=== PATIENT | male | born 1955 | race Caucasian/White ===

== ENCOUNTER 2020-07-16 11:46 | Outpatient (REF) | payer OTHER, SELFPAY ==
[2020-07-16 11:49] LABS: Urine Cytology See Pathology rpt
== END 2020-07-16 11:47 | disposition home or self-care (01) ==
LOC: HO.LNP 11:46
PROVIDERS: Visit Provider Nurse Practitioner Family
DX: R31.29 Other microscopic hematuria (principal)
CPT/HCPCS: 87086; 88112

== ENCOUNTER 2020-07-18 13:49 | Outpatient (REF) | payer OTHER, SELFPAY ==
--- NOTE | 2020-07-18 13:53 | US_ITS ---
EXAMINATION: US PELVIS, LIMITED/FOLLOW UP CLINICAL INFORMATION: Left groin pain. COMPARISON: None TECHNIQUE: Limited ultrasound imaging through the left groin was performed. FINDINGS: Imaging through the left groin reveals no evidence of hernia, mass, fluid collections or abnormal lymph nodes. The soft tissues are normal. US/US pelvic limited IMPRESSION: Unremarkable left groin exam.
== END 2020-07-18 13:50 | disposition home or self-care (01) ==
LOC: HO.HMGCX 13:49
PROVIDERS: PCP Nurse Practitioner Family; Visit Provider Nurse Practitioner Family
DX: R10.32 Left lower quadrant pain (principal)
CPT/HCPCS: 76857

== ENCOUNTER 2020-07-31 06:12 | Outpatient (REF) | payer OTHER, SELFPAY ==
[2020-07-31 11:59] LABS: Alanine Aminotransferase 13 U/L (0-40); Albumin Level 4.2 g/dL (3.5-5.0); Alkaline Phosphatase 52 U/L (39-117); Anion Gap 14 (12-20); Aspartate Amino Transferase 13 U/L (5-37); Bilirubin Total 0.7 mg/dL (0.0-1.0); Blood Urea Nitrogen 17 mg/dL (9-16); Calcium 8.4 mg/dL (8.4-10.2); Carbon Dioxide 25 mmol/L (22-29); Chloride 107 mmol/L (96-108); Cholesterol 133 mg/dL; Estimated Glomerular Filt Rate > 60; Glucose Fasting 94 mg/dL (60-99); HDL Cholesterol 55 mg/dL; LDL Cholesterol Calculated 65 mg/dl; Potassium 4.2 mmol/L (3.3-5.1); Sodium 142 mmol/L (135-145); Total Protein 7.3 g/dL (6.5-8.0); Triglycerides 66 mg/dL
[2020-07-31 12:08] LABS: Prostate Specific Antigen Scr 7.01 ng/mL (<0.05-4.0); TSH reflex Free T4 0.61 uIU/mL (0.32-4.0)
== END 2020-07-31 06:13 | disposition home or self-care (01) ==
LOC: HO.HMGCLDS 06:12
PROVIDERS: PCP Nurse Practitioner Family; Visit Provider Nurse Practitioner Family
DX: Z00.00 Encounter for general adult medical examination without abnormal findings (principal); Z12.5 Encounter for screening for malignant neoplasm of prostate
CPT/HCPCS: 36415; 80053; 80061; 84153; 84443

== ENCOUNTER 2020-08-25 13:34 | Outpatient (REF) | payer OTHER, SELFPAY ==
--- NOTE | ~2020-08-25 | XR_ITS ---
EXAMINATION: XR HIP, LEFT CLINICAL INFORMATION: Pain COMPARISON: None TECHNIQUE: Two views of the left hip. FINDINGS: Bone alignment is normal. No fracture or dislocation is seen. There is arthritis at the left hip joint with joint space narrowing and osteophyte formation. Soft tissues are unremarkable. XR/XR hip LT min 2V IMPRESSION: Left hip arthritis.
== END 2020-08-25 13:35 | disposition home or self-care (01) ==
LOC: HO.HMGCX 13:34
PROVIDERS: PCP Nurse Practitioner Family; Visit Provider Nurse Practitioner
DX: M25.552 Pain in left hip (principal)
CPT/HCPCS: 73502

== ENCOUNTER → 2020-09-03 10:56 | Outpatient (BNVA) | payer OTHER, SELFPAY | PROVIDERS: PCP Nurse Practitioner Family; Visit Provider Urology ==

== ENCOUNTER 2020-10-14 07:37 | Day surgery (SDC) | payer OTHER, SELFPAY ==
--- NOTE | 2020-10-09 14:46 | HO.ANESPROP2 ---
Documented by User: Roshni Sofia 10/09/20 14:47 HPI - Anesthesia Eval Consult details Narrative: 65yo M for Colonoscopy PMFSH Active Problems Active Problems: All Active Problems (Updated 09/03/20 @ 11:47 by Reid Capellan MD) Elevated PSA (Acute) BPH w urinary obs/LUTS (Acute) Tubular adenoma of colon (Acute) Left hip pain (Acute) Screening for colon cancer (Acute) Left groin pain (Acute) Screening PSA (prostate specific antigen) (Acute) Microscopic hematuria (Acute) Physical exam (Acute) Past Medical History Medical History Elevated PSA Enlarged prostate Graves disease History of hyperthyroidism Family History Family History Father Colon cancer Mother S/P triple vessel bypass Maternal Grandmother History of heart attack Son No problems noted. Daughter No problems noted. Paternal Grandmother Diabetes mellitus Surgical History Surgical History History of thyroidectomy Hx of colonoscopy Social History Social History Alcohol intake: current Alcohol intake frequency: a few times a month Alcohol type: beer Smoking Status: Current every day smoker Tobacco Type: Cigarette Packs Per Day: 1 Cigarettes Per Day: 20.0 Years Smoked: 45 Smoked in Last 30 Days: Yes Use of substances other than those prescribed or required for medical reasons: Yes Substance Use Type: Marijuana Substance Use Frequency: Occasionally Advance Directives: Yes Advance Directives on File: Yes Advance Directives Date on File: 10/14/20 Recently lost weight without trying: No Meds Allergies Allergy/AdvReac Type Severity Reaction Status Date / Time No Known Allergies Allergy Verified 10/07/20 13:07 [No Known Allergies*] Home Medications Medication Instructions Recorded Confirmed Last Taken Type flu vacc [id number] 6mos up(PF) ml IM 07/16/20 08/19/20 Unknown History Exam Exam Date and Time: October 09, 2020 1446 Assessment and Plan Assessment Anesthesia Assessment: Chart Reviewed Documented by User: Nyla Wharton 10/14/20 09:06 [facility] Past Medical History Medical History Elevated PSA Enlarged prostate Graves disease History of hyperthyroidism Family History Family History Father Colon cancer Mother S/P triple vessel bypass Maternal Grandmother History of heart attack Son No problems noted. Daughter No problems noted. Paternal Grandmother Diabetes mellitus Surgical History Surgical History History of thyroidectomy Hx of colonoscopy Social History Social History Alcohol intake: current Alcohol intake frequency: a few times a month Alcohol type: beer Smoking Status: Current every day smoker Tobacco Type: Cigarette Packs Per Day: 1 Cigarettes Per Day: 20.0 Years Smoked: 45 Smoked in Last 30 Days: Yes Use of substances other than those prescribed or required for medical reasons: Yes Substance Use Type: Marijuana Substance Use Frequency: Occasionally Advance Directives: Yes Advance Directives on File: Yes Advance Directives Date on File: 10/14/20 Recently lost weight without trying: No Meds Allergies Allergy/AdvReac Type Severity Reaction Status Date / Time No Known Allergies Allergy Verified 10/07/20 13:07 [No Known Allergies*] Home Medications Medication Instructions Recorded Confirmed Last Taken Type flu vacc [id number] 6mos up(PF) ml IM 07/16/20 08/19/20 Unknown History Exam Airway Mallampati Class: III (Edentulous) TM Dist: >3cm Neck ROM: Full Denture: Upper and Lower Loose/Missing/Broken Teeth: Yes, Upper and Lower Heart: RRR Lungs: CTA Assessment and Plan Assessment Anesthesia Assessment: Anesthesia Plan Discussed and Chart Reviewed Final Anesthetic Review NPO: Yes ASA Class: II Final Preanesthetic Review: No Changes in Pt Med Stat, Meds/Allgs Chart Reviewed and Consent Obtained/Reviewed Patient Risk: Low Procedure Risk: Low Anesthetic Plan Anesthetic Plan: MAC: Disposition: Standard PACU
[2020-10-14 08:34] VITALS: BP 138/77; PULSE 63; RESP 16; TEMP 37.1; O2SAT 94; BMI 31.5
[2020-10-14] MEDS: Lactated Ringers 1,000 ML 100 ML IVCONT (08:57)
--- NOTE | 2020-10-14 09:00 | MHC.SHP ---
Pre-Procedural Eval Section B Chief Complaint: Tubular Adenoma of Colon Details of Present Illness: Colon cancer Screening Father had colon cancer in his 50 s Relevant Family History (Specify if Yes): Yes Relevant Social History: None Present Medications: None Medical History: Significant History (SIMONE) History of Previous Operations: Relevant previous surgery/procedure and date(s) (2015--colo) Allergies: Allergies Allergy/AdvReac Type Severity Reaction Status Date / Time No Known Allergies Allergy Verified 10/07/20 13:07 [No Known Allergies*] Review of Systems Sugical H&P ROS: Negative: Constitution and Cardiovascular and Yes, Specify: Respiratory (HX simone) and Gastrointestinal (hx tubular adenomas) Exam Surgical H&P Exam: Normal: HEENT, Normal: Heart and Normal: Skin and Significant Findings: Lungs (exp wheezing) Plan Diagnosis/Plan: Unchanged I have reviewed the history and physical and performed a pertinent physical examination on my patient. No changes have occurred unless specified.yes
[2020-10-14 10:00] VITALS: BP 140/93; PULSE 83; RESP 18; TEMP 36.4; O2SAT 98
--- NOTE | 2020-10-14 10:11 | PM.OP ---
Brief Operative Note Date of Service: 10/14/20 Pre-op diagnosis: Colon cancer Screening--hx Tubular adenoma Post-op diagnosis: other (Colon polyp, Diverticulosis, Internal hemorrhoids.) Procedure: COLONOSCOPY WITH EXC POLYPECTOMY COLD BX FORCEPS, RESOLUTION CLIPPING X2 Implants: SEE ABOVE Surgeon: Nikia Guerrier MD Anesthesia: MAC (MD OLVIN) Estimated blood loss (mL): 10 Pathology: other (POLYP @ 30CM) Condition: stable Disposition: PACU
[2020-10-14 10:15] VITALS: BP 133/86; PULSE 58; RESP 16; O2SAT 95
[2020-10-14 10:30] VITALS: BP 144/79; PULSE 71; RESP 16; TEMP 36.4; O2SAT 95
--- NOTE | 2020-10-14 12:14 | W.PM.OPN ---
Operative Note Operative Note Date of Service: 10/14/20 Narrative: Pre-op diagnosis: Colon cancer Screening--hx Tubular adenoma Post-op diagnosis: Colon polyp, Diverticulosis, 1+ Internal hemorrhoids. ???RAISED BY ANESTHESIA--?SIMONE??? Procedure: COLONOSCOPY WITH EXC POLYPECTOMY COLD BX FORCEPS, RESOLUTION CLIPPING X2 Implants: SEE ABOVE Surgeon: Nikia Guerrier MD Anesthesia: MAC (MD OLVIN) FINDINGS: CYNDI: Prostate not well felt. adult slim colonoscope was introduced without difficulty. Advanced through rectosigmoid, descending, transverse colon. There was extrinsic looping of the scope ultimately requiring repositioning of the patient onto his back. This allowed scope to advance through ascending colon into the cecal cap. PREP was good to fair in a few areas, necessitating more flushing and suctioning. As scope was with drawn polyp with indistinct cryptic pattern even with NBI was seen. This was removed by cold bx foreps excisional technique. Resolution clipping x 2 was done on base, due to continous oozing. Further withdrawal--ARV was clear. There were 1+ Internal Hemorrhoids noted. Estimated blood loss (mL): 10 Pathology: other (POLYP @ 30CM) Condition: stable Disposition: PACU PLAN: FAMILY HX OF COLON CANCER, PERSONAL HX OF TUBULAR ADENOMA--REPEAT SCREENING IN 5 YEARS.
== END 2020-10-14 10:55 | disposition home or self-care (01) ==
PROVIDERS: PCP Nurse Practitioner Family; Visit Provider Internal Medicine Gastroenterology
PROC: 0DJD8ZZ Inspection of Lower Intestinal Tract, Via Natural or Artificial Opening Endoscopic (ICD-10-PCS; CPT 45378; principal; 2020-10-14 09:20)
DX: Z12.11 Encounter for screening for malignant neoplasm of colon (principal); Z86.010 Personal history of colon polyps; Z80.0 Family history of malignant neoplasm of digestive organs; K63.5 Polyp of colon; K57.30 Diverticulosis of large intestine without perforation or abscess without bleeding; K64.8 Other hemorrhoids; N40.0 Benign prostatic hyperplasia without lower urinary tract symptoms; E05.00 Thyrotoxicosis with diffuse goiter without thyrotoxic crisis or storm; Z79.899 Other long term (current) drug therapy; F17.210 Nicotine dependence, cigarettes, uncomplicated; F12.90 Cannabis use, unspecified, uncomplicated
CPT/HCPCS: 45380; 88305; J0461

== ENCOUNTER 2020-11-04 08:46 | Outpatient (REF) | payer OTHER, SELFPAY ==
[2020-11-04 11:47] LABS: Alanine Aminotransferase 20 U/L (0-40); Albumin Level 4.1 g/dL (3.5-5.0); Alkaline Phosphatase 51 U/L (39-117); Anion Gap 13 (12-20); Aspartate Amino Transferase 15 U/L (5-37); Bilirubin Total 0.7 mg/dL (0.0-1.0); Blood Urea Nitrogen 15 mg/dL (9-16); Calcium 8.7 mg/dL (8.4-10.2); Carbon Dioxide 26 mmol/L (22-29); Chloride 104 mmol/L (96-108); Estimated Glomerular Filt Rate > 60; Glucose Random 95 mg/dL (60-115); Sodium 139 mmol/L (135-145); Total Protein 7.4 g/dL (6.5-8.0)
[2020-11-04 12:10] LABS: TSH reflex Free T4 0.31 uIU/mL (0.32-4.0)
[2020-11-04 12:24] LABS: B Type Natriuretic Peptide < 10 pg/mL (<100)
[2020-11-04 13:02] LABS: Free T4 (Free Thyroxine) 1.23 ng/dL (0.71-1.85)
== END 2020-11-04 08:47 | disposition home or self-care (01) ==
LOC: HO.HMGCLDS 08:46
PROVIDERS: PCP Nurse Practitioner Family; Visit Provider Nurse Practitioner Family
DX: M79.89 Other specified soft tissue disorders (principal)
CPT/HCPCS: 36415; 80053; 83880; 84439; 84443

== ENCOUNTER 2020-11-13 08:28 | Outpatient (REF) | payer OTHER, SELFPAY ==
--- NOTE | ~2020-11-13 | XR_ITS ---
EXAMINATION: XR PELVIS CLINICAL INFORMATION: Pain COMPARISON: Previous x-ray left hip August 2020 TECHNIQUE: AP view of the pelvis. FINDINGS: Bone alignment is normal. No fracture or dislocation is seen. There is arthritis at the hip joints, left greater than right. There are degenerative changes of the visualized lower lumbar spine. There are degenerative changes at the sacroiliac joints. There are bilateral soft tissue pelvic calcifications probably representing calcified phleboliths. XR/XR pelvis 1-2V IMPRESSION: Bilateral hip arthritis, left greater than right
== END 2020-11-13 08:29 | disposition home or self-care (01) ==
LOC: HO.HOSX 08:28
PROVIDERS: Visit Provider Orthopaedic Surgery
DX: M16.12 Unilateral primary osteoarthritis, left hip (principal); F17.210 Nicotine dependence, cigarettes, uncomplicated
CPT/HCPCS: 72170

== ENCOUNTER → 2020-11-28 07:32 | Outpatient (REF) | payer OTHER, SELFPAY ==
--- NOTE | 2020-11-28 07:35 | CA_ITS ---
Transthoracic Echocardiogram Patient (Last, First, Middle): Scotty Garcia, Gender: Male Date of : 1955 Age: 65 Procedure Date: 11/28/2020 Procedure Type: Transthoracic Echocardiogram Location: OP Height: 177.8 cm Weight: 99.79 kg BSA: 2.17 m2 Heart Rate: bpm BP: 138 / 72 mmHg Welding Instructor: STEVAN Taylor MD: Alejandro Cerda [facility]- Symptoms: M79.89 - Other specified soft tissue disorders Conclusions: - Normal left ventricular size and systolic function. - Diastolic function is normal for age. - Normal right ventricular cavity size and systolic function. Findings Procedure Information The patient receives contrast. Left Ventricle Normal left ventricular size and systolic function. There is mildly increased left ventricular wall thickness. The visually estimated ejection fraction is between 55-60%. There is no evidence of regional wall motion abnormalities. Diastolic function is normal for age. Right Ventricle Normal right ventricular cavity size and systolic function. Atria Both atria are normal in size. Aortic Valve There is a normal trileaflet aortic valve. There is no aortic valve stenosis. There is no aortic valve regurgitation. Mitral Valve Normal mitral valve structure and function. There is no mitral valve regurgitation. There is no mitral valve stenosis. Pulmonic Valve The pulmonic valve is likely normal. Tricuspid Valve Normal tricuspid valve structure and function. There is trace tricuspid valve regurgitation. Tricuspid regurgitation envelope is inadequate for calculation of right ventricular systolic pressure. Normal right atrial pressure. Great Vessels All visible segments of the aorta are normal in size. The visualized portions of the pulmonary artery and branches are normal. Venous The inferior vena cava is normal in size and collapses greater than 50% with inspiration. Pericardium/Pleural There is no evidence of pericardial effusion. Prior Study Comparison No prior study available for comparison. Measurements 2D Linear Measurements RVIDd: 3.53 RVIDd Index: 1.63 IVSd: 1.10 0.6-0.9/0.6-1.0 cm LVIDd: 6.03 3.9-5.3/4.2-5.9 cm LVIDd Index: 2.78 2.4-3.2/2.2-3.1 cm/m2 LVIDs: 3.94 2.0-3.6 cm LVPWd: 1.20 0.7-1.1 cm Ao Root: 3.20 2.1-3.5 cm LA Diam: 3.80 2.7-3.8/3.0-4.0 cm LAIDs Index: 1.75 1.5-2.3 cm/m2 LV Mass: 373.10 67-162/88-224 g LV Mass Index: 171.94 43-95/49-115 g/m2 LVOT Diam: 2.20 3.0+(-)1.3 cm 2D Systolic Function EF 4C: 58.10 >55% EF 2C: 54.30 >55% EF BiP: 57.60 >55% Mitral Valve MV Pk E: 0.53 MV PK A: 0.51 MV Decel Time: 322.00 E/A: 1.00 E'Lateral: 7.40 E'Medial: 6.96 E/E' Med: 7.60 E/E' Lat: 7.10 Aortic Valve AoV Pk Teto: 1.39 AoV Mn Teto: 1.05 AoV VTI: 0.32 AoV Pk Grad: 8.00 Aov Mn Grad: 5.00 MACARIO Cont.VTI: 2.42 LVOT LVOT Pk Teto: 0.91 LVOT Mn Teto: 0.68 LVOT VTI: 0.21 LVOT Pk Grad: 3.00 LVOT Mn Grad: 2.00 LVOT Diam: 2.20 LVOT Area: 3.80 Diastolic Function MV Pk E: 0.53 MV Pk A: 0.51 E/A: 1.00 E'Medial: 6.96 E/E' Med: 7.60 E' Laterial: 7.40 E/E' Lat: 7.10 Tricuspid Valve RA Press: 3.00 Great Vessels Aorta Ao Root-2D: 3.20 2.0-3.7 cm Ao Asc: 3.20 2.1-3.4 cm Ao Arch: 3.00 Updated in Other Vendor System with Status of Final Hector Purvis MD electronically signed on 11/29/2020 10:45:00 PM with status of Final
== END ==
LOC: HO.CARD 07:32
PROVIDERS: Visit Provider Nurse Practitioner Family
DX: M79.89 Other specified soft tissue disorders (principal)
CPT/HCPCS: 93306; Q9957

== ENCOUNTER → 2020-12-10 08:52 | Outpatient (BNVA) | payer OTHER, SELFPAY | PROVIDERS: PCP Nurse Practitioner Family; Visit Provider Internal Medicine ==

== ENCOUNTER → 2021-01-05 08:52 | Outpatient (REF) | payer OTHER, SELFPAY | LOC: HO.SL 08:52 | PROVIDERS: PCP Nurse Practitioner Family; Visit Provider Internal Medicine | DX: G47.33 Obstructive sleep apnea (adult) (pediatric) (principal); G47.10 Hypersomnia, unspecified; E66.9 Obesity, unspecified | CPT/HCPCS: 95806 ==

== ENCOUNTER → 2021-01-20 07:52 | Outpatient (BNVA) | payer OTHER, SELFPAY | PROVIDERS: PCP Nurse Practitioner Family; Visit Provider Orthopaedic Surgery ==

== ENCOUNTER → 2021-01-27 08:57 | Outpatient (BNVA) | payer OTHER, SELFPAY | PROVIDERS: PCP Nurse Practitioner Family; Visit Provider Internal Medicine ==

== ENCOUNTER → 2021-02-19 07:57 | Outpatient (BNVA) | payer OTHER, SELFPAY | PROVIDERS: PCP Nurse Practitioner Family; Visit Provider Physician Assistant ==

== ENCOUNTER 2021-02-24 06:46 | Inpatient (IN) | payer OTHER, SELFPAY ==
--- NOTE | 2021-01-27 09:23 | ECG_ITS ---
Test Reason : PRE OP Blood Pressure : / mmHG Vent. Rate : 061 BPM Atrial Rate : 061 BPM P-R Int : 144 ms QRS Dur : 104 ms QT Int : 430 ms P-R-T Axes : 038 036 049 degrees QTc Int : 432 ms Normal sinus rhythm Normal ECG No previous ECGs available Referred By: Chino Benjamin Electronically Signed By:Hector Purvis
[2021-01-27 10:34] LABS: MANUAL DIFF FLAG NO
[2021-01-27 10:41] LABS: Basophils Absolute Auto 0.1 X10*3/uL (0.0-0.2); Basophils Percent Auto 0.8 % (0-2); Eosinophils Absolute Auto 0.3 X10*3/uL (0.0-0.4); Eosinophils Percent Auto 3.3 % (0-4); Hematocrit 46.9 % (42-52); Hemoglobin 15.3 g/dl (14.0-18.0); Imm Gran Abs Auto 0.02 X10*3/uL (0.00-0.03); Imm Gran Pct Auto 0.3 % (0.0-0.4); Lymphocytes Absolute Auto 3.1 X10*3/uL (1.2-4.9); Lymphocytes Percent Auto 39.7 % (20-40); Mean Corpuscular HGB Conc 32.6 g/dl (31.0-36.0); Mean Corpuscular Hemoglobin 29.8 pg (27.0-33.0); Mean Corpuscular Volume 91.2 fL (80-98); Mean Platelet Volume 9.4 fL (9.4-12.4); Monocytes Absolute Auto 0.9 X10*3/uL (0.1-1.2); Monocytes Percent Auto 11.6 % (2-11); Neutrophils Absolute Auto 3.5 X10*3/uL (2.0-8.3); Neutrophils Percent Auto 44.3 % (45-73); Platelet Count 298 X10*3/uL (160-400); Red Blood Count 5.14 X10*6/uL (4.60-5.80); White Blood Count 7.9 X10*3/uL (4.8-10.8)
[2021-01-27 11:13] LABS: Anion Gap 12 (12-20); Blood Urea Nitrogen 15 mg/dL (9-16); Calcium 8.7 mg/dL (8.4-10.2); Carbon Dioxide 26 mmol/L (22-29); Chloride 106 mmol/L (96-108); Estimated Glomerular Filt Rate > 60; Glucose Random 96 mg/dL (60-115); Potassium 4.4 mmol/L (3.3-5.1); Sodium 140 mmol/L (135-145)
[2021-01-27 11:35] LABS: TSH reflex Free T4 0.25 uIU/mL (0.32-4.0)
[2021-01-27 12:25] LABS: Free T4 (Free Thyroxine) 1.23 ng/dL (0.71-1.85)
--- NOTE | 2021-02-18 10:57 | P.CONAN_ITS ---
Documented by User: Roshni Black NP 02/18/21 12:29 HPI - Anesthesia Eval Consult details Narrative: 66yo M for Left ?Hip Total Replacement PCP cleared Recent dx of SIMONE, severe. CPAP being picked up 02/19. Educated on use with all sleep. [facility] Active Problems Active Problems: All Active Problems (Updated 01/27/21 @ 09:26 by Nery Lind MD) Nocturnal hypoxemia (Acute) SIMONE (obstructive sleep apnea) (Acute) Hypersomnolence (Acute) Obesity (BMI 35.0-39.9 without comorbidity) (Acute) Low TSH level (Acute) Localized swelling of both lower extremities (Acute) Hip arthritis (Acute) Hip arthritis (Acute) Sleep apnea (Acute) Elevated PSA (Acute) BPH w urinary obs/LUTS (Acute) Tubular adenoma of colon (Acute) Left hip pain (Acute) Screening for colon cancer (Acute) Left groin pain (Acute) Screening PSA (prostate specific antigen) (Acute) Microscopic hematuria (Acute) Physical exam (Acute) Past Medical History Medical History Elevated cholesterol Elevated PSA Enlarged prostate Graves disease History of hyperthyroidism Hypersomnolence Nocturnal hypoxemia Obesity (BMI 35.0-39.9 without comorbidity) SIMONE (obstructive sleep apnea) Sleep apnea Family History Family History Father Colon cancer Mother S/P triple vessel bypass Maternal Grandmother History of heart attack Son No problems noted. Daughter No problems noted. Paternal Grandmother Diabetes mellitus Family history of problems with anesthesia: No Surgical History Surgical History History of thyroidectomy Hx of colonoscopy History of Problems with Anesthesia: No Social History Social History (Updated 02/19/21 @ 08:06 by Raghu Simon) Housing: House Are you a primary wound care technician to a significant other at home: No Do you presently have visiting nurse or other home services: No Alcohol intake: current Alcohol intake frequency: a few times a week Alcohol type: beer Patient Tobacco Use Status: Current everyday Tobacco user Tobacco use type: Cigarette Cigarette Packs Per Day: 1 Cigarettes Per Day: 20.0 Years Smoked: 45 Smoked in Last 30 Days: Yes Patient Interested in Nicotine Replacement: Yes Patient Given Instructions on How to Stop Smoking: Yes Date Education Initiated: 02/18/21 Second Hand Smoke Exposure: No Use of substances other than those prescribed or required for medical reasons: Yes Substance Use Type: Marijuana Substance Use Frequency: Monthly Have you been hit, kicked, punched, or otherwise hurt by someone within the past year? If so, by whom?: No Are you DNR?: Yes Advance Directives: No Advance Directives Information Provided: No Advance Directives on File: Yes Advance Directives Date on File: 10/14/20 Recently lost weight without trying: No Eating poorly because of decreased appetite: No Nutrition Risks: No Nutritional Risk Current occupational status: employed Current occupation: rt handed/[employer] Narrative Narrative: No recent illness. No CP/SOB with minimal activity - limited to pain. Meds Allergies Allergy/AdvReac Type Severity Reaction Status Date / Time No Known Allergies Allergy Verified 02/24/21 06:27 [No Known Allergies*] Active Medications: Home Medications levothyroxine 150 mcg tablet 150 mcg PO QAM #90 tab 06/12/20 [Rx Confirmed 02/18/21] flu vacc [id number] 6mos up(PF) ml IM 07/16/20 [History Confirmed 02/02/21] finasteride 5 mg tablet 5 mg PO DAILY 90 Days #90 tab 09/03/20 [Rx Confirmed 02/18/21] atorvastatin 20 mg tablet 20 mg PO DAILY #90 tab 10/07/20 [Rx Confirmed 02/18/21] tamsulosin 0.4 mg capsule 0.4 mg PO DAILY #90 cap 10/07/20 [Rx Confirmed 1] nicotine 21 mg/24 hr daily transdermal patch 1 patch TRANSDERMAL Q24H 28 Days #28 ea 02/02/21 [Rx Confirmed 02/18/21] sildenafil 100 mg tablet 100 mg PO DAILY PRN 10 Days #10 tab 02/02/21 [Rx Confi rmed 02/18/21] walker #1 ea 02/02/21 [Rx Confirmed 02/02/21] Exam Exam Date and Time: February 18, 2021 1057 Pertinent Lab Results Pertinent Lab Results: Laboratory Tests 01/27/21 01/27/21 01/27/21 09:32 09:32 09:32 WBC 7.9 RBC 5.14 Hgb 15.3 Hct 46.9 MCV 91.2 MCH 29.8 MCHC 32.6 RDW 14.0 Plt Count 298 MPV 9.4 Immature Gran % (Auto) 0.3 Neut % (Auto) 44.3 L Lymph % (Auto) 39.7 Person % (Auto) 11.6 H Eos % (Auto) 3.3 Baso % (Auto) 0.8 Lymph # (Auto) 3.1 Person # (Auto) 0.9 Eos # (Auto) 0.3 Baso # (Auto) 0.1 Abs Immat Gran (auto) 0.02 Absolute Neuts (auto) 3.5 Absolute Nucleated RBC 0.000 Nucleated RBC % (auto) 0.0 Sodium 140 Potassium 4.4 Chloride 106 Carbon Dioxide 26 Anion Gap 12 BUN 15 Creatinine 0.85 Estim Creat Clear Calc TNP Estimated GFR > 60 Random Glucose 96 Calcium 8.7 TSH 0.25 L Free T4 1.23 Narrative Narrative: EKG 01/2021. Vent. Rate : 061 BPM ? ? Atrial Rate : 061 BPM ?? P-R Int : 144 ms? QRS Dur : 104 ms ? ? QT Int : 430 ms ? ? ? P-R-T Axes : 038 036 049 degrees ?? QTc Int : 432 ms ? Normal sinus rhythm Normal ECG No previous ECGs available ECHO 11/2020 Conclusions: - Normal left ventricular size and systolic function.? - Diastolic function is normal for age.? - Normal right ventricular cavity size and systolic function.? Airway Mallampati Class: III (Small mouth) TM Dist: >3cm Neck ROM: Full Denture: Upper Partial: Lower Heart: RRR Lungs: CTAB Assessment and Plan Assessment Anesthesia Assessment: Anesthesia Plan Discussed, Smoking Cess. Discussed and PAT Visit Final Anesthetic Review Family History of Problems with Anesthesia: No History of Problems with Anesthesia: No Documented by User: Vidal Cabral MD 02/24/21 08:25 [facility] Past Medical History Medical History Elevated cholesterol Elevated PSA Enlarged prostate Graves disease History of hyperthyroidism Hypersomnolence Nocturnal hypoxemia Obesity (BMI 35.0-39.9 without comorbidity) SIMONE (obstructive sleep apnea) Sleep apnea Family History Family History Father Colon cancer Mother S/P triple vessel bypass Maternal Grandmother History of heart attack Son No problems noted. Daughter No problems noted. Paternal Grandmother Diabetes mellitus Surgical History Surgical History History of thyroidectomy Hx of colonoscopy Social History Social History (Updated 02/19/21 @ 08:06 by Raghu Simon) Housing: House Are you a primary wound care technician to a significant other at home: No Do you presently have visiting nurse or other home services: No Alcohol intake: current Alcohol intake frequency: a few times a week Alcohol type: beer Patient Tobacco Use Status: Current everyday Tobacco user Tobacco use type: Cigarette Cigarette Packs Per Day: 1 Cigarettes Per Day: 20.0 Years Smoked: 45 Smoked in Last 30 Days: Yes Patient Interested in Nicotine Replacement: Yes Patient Given Instructions on How to Stop Smoking: Yes Date Education Initiated: 02/18/21 Second Hand Smoke Exposure: No Use of substances other than those prescribed or required for medical reasons: Yes Substance Use Type: Marijuana Substance Use Frequency: Monthly Have you been hit, kicked, punched, or otherwise hurt by someone within the past year? If so, by whom?: No Are you DNR?: Yes Advance Directives: No Advance Directives Information Provided: No Advance Directives on File: Yes Advance Directives Date on File: 10/14/20 Recently lost weight without trying: No Eating poorly because of decreased appetite: No Nutrition Risks: No Nutritional Risk Current occupational status: employed Current occupation: rt handed/[employer] Meds Allergies Allergy/AdvReac Type Severity Reaction Status Date / Time No Known Allergies Allergy Verified 02/24/21 06:27 [No Known Allergies*] Assessment and Plan Final Anesthetic Review NPO: Yes ASA Class: III Final Preanesthetic Review: No Changes in Pt Med Stat, Meds/Allgs Chart Rev iewed, Consent Obtained/Reviewed and Anes Risks/Benef Reviewed Patient Risk: High Procedure Risk: Intermediate Anesthetic Plan Anesthetic Plan: GA Disposition: Standard PACU
[2021-02-18 12:06] VITALS: BP 123/78; PULSE 64; RESP 20; O2SAT 94; BMI 34.2
[2021-02-18 14:55] LABS: MRSA Nasal PCR NEGATIVE (Negative); SA Nasal PCR POSITIVE (Negative)
[2021-02-24] VITALS (16 sets, daily range): BP systolic 105–141; BP diastolic 47–83; PULSE 55–72; RESP 14–20; TEMP 36.2–36.7; O2SAT 92–98
--- NOTE | ~2021-02-24 | XR_ITS ---
EXAMINATION: XR PELVIS CLINICAL INFORMATION: Status post KIMBER. COMPARISON: Pelvis 11/13/2020. TECHNIQUE: AP view of the pelvis. FINDINGS: A left total hip arthroplasty appears well seated in near-anatomic alignment. There is air in the surrounding soft tissues and lateral skin ahmet. XR/XR pelvis 1-2V IMPRESSION: Intact-appearing left total hip arthroplasty. Expected postoperative changes.
[2021-02-24 07:01] LABS: COVID-19 Test Negative (Negative); IDNOW Serial# 08D9AD1C
[2021-02-24] MEDS: oxyCODONE HCl ER 10 MG TAB.ER.12H PO ×2 (07:04→20:29)
[2021-02-24] MEDS: Lactated Ringers 1,000 ML 100 ML IVCONT (07:04)
--- NOTE | 2021-02-24 07:32 | MHC.SHP ---
Pre-Procedural Eval Section A Date of Service: 02/24/21 The patient is an INPATIENT: No Changes since office visit: Yes Patient answered all questions; No Cold of Flu in the past 2 weeks, No New Medical Problems and No Changes in Medication The History & Physical has been completed within 30 days and I have reviewed it.: Yes Section B Chief Complaint: Left total hip arthroplasty Allergies: Allergies Allergy/AdvReac Type Severity Reaction Status Date / Time No Known Allergies Allergy Verified 02/24/21 06:27 [No Known Allergies*] Plan I have reviewed the history and physical and performed a pertinent physical examination on my patient. No changes have occurred unless specified.
--- NOTE | 2021-02-24 10:07 | P.BOP_ITS ---
Brief Operative Note Date of Service: 02/24/21 Pre-op diagnosis: Left hip OA Post-op diagnosis: same Procedure: Left KIMBER Implants: [place] 58 trident2 with 20 deg liner Accolade2 #8 132 deg wityh +2.5 36 ceramic Surgeon: Chino Bnejamin MD Anesthesia: GETA and local Was an Centrifugal Station Operator used for this Procedure?: Yes Centrifugal Station Operator: Armando Covarrubias Estimated blood loss (mL): 250 IV fluids (mL): 1,200 Pathology: other Condition: stable Disposition: PACU
--- NOTE | 2021-02-24 10:12 | W.PM.OPN ---
Operative Note Operative Note Date of Service: 02/24/21 Narrative: Pre-op diagnosis: Left hip OA Post-op diagnosis: same Procedure: Left KIMBER Implants: [place] 58 trident2 with 20 deg liner Accolade2 #8 132 deg wityh +2.5 36 ceramic Surgeon: Chino Benjamin MD Anesthesia: GETA and local Was an Quill Picking Machine Operator used for this Procedure?: Yes Quill Picking Machine Operator: Armando Covarrubias Estimated blood loss (mL): 250 IV fluids (mL): 1,200 Pathology: other Condition: stable Disposition: PACU Procedure in detail: Patient was brought into the operating room and placed in the lateral decubitus position. All bony prominences were well padded and the limb was prepped and draped in standard sterile fashion. Time-out was called to identify proper site procedure proper surgeon IV antibiotics and 1 g of transaxemic acid were administered. I injected 15 ml of -.5 % Marcaine with epi over the skin and I began by making a curvilinear incision over the posterolateral aspect of the greater trochanter. Dissection was taken down to the tensor fascia which was incised in line with the incision and a Charnley retractor was placed. Cautery was used to maintain hemostasis. The hip was internally rotated and the external rotators were identified. The vessels were cauterized and a full-thickness capsular/external rotator layer was developed starting just proximal to the piriformis. Tis layer was tagged and a dull Hohmann retractor was placed underneath the neck in the hip was dislocated. The head was eburnated and deformed. A neck cut was made 1 cm proximal to the lesser trochanter and the head and neck were removed and measured on the back table. I then placed my anterior-posterior acetabular retractors and performed a labrectomy. The cup was medialized and I then sequentially reamed up to a size __58_ and impacted a __58 cup__ at approximately 45 degrees of inclination and 25 degrees of version. I then placed a __20 deg lipped liner and turned my attention to the femur. I identified the piriformis insertion and used this as a starting point for my bogdan cutter. The medius tendon was protected with a Hibs retractor. I then used a Charnley awl to identify the canal and a curved curette to remove the lateral bone. I then sequentially broached in the patient's natural version to a size ___8 _ and placed my trial implants. Using a ____+0- 36 head I took the hip through range of motion with a I was very satisfied with the stability and length. Therefore removed all instrumentation copiously irrigated placed my final femoral implant. I again took the hip through range of motion and was satisfied with the stability and length using a +2.5 ceramic and so my final femoral head was impacted in place. I then irrigated for 3 minutes with iodine and placed 1 g of local TXA. I then performed a capsular closure with FiberWire, Dontae's fascia with 0 Vicryl, subcuticular with 2-0 Vicryl and skin with ahmet. Patient was placed into a sterile dressing. An additional 15 ml of local anesthetic was injected at the conclusion of the case Pateint was extubated and brought to the recovery room in stable condition. There were no known complications.
[2021-02-24] MEDS: Ketorolac Tromethamine 15 MG/ML VIAL IVPUSH (10:16)
[2021-02-24] MEDS: HYDROmorphone HCl 0.5 MG/0.5 ML SYRINGE 0.25 MG IVPUSH ×3 (10:19→13:15)
[2021-02-24] MEDS: Dextrose 5 % and 0.45 % NaCl 1,000 ML 80 ML IVCONT ×2 (13:16→23:56)
[2021-02-24] MEDS: ceFAZolin Sodium/Dextrose,Iso 2 GM/50 ML PIGGYBACK IV (13:16)
--- NOTE | 2021-02-24 13:58 | P.CONIM_ITS ---
History of Present Illness Data of Consult Service Date: 02/24/21 Primary Care Provider: Alejandro Cerda, [facility]- HPI Reason for consult: hypothyroid 66-year-old male presented for elective left total hip arthroplasty. Medicine consulted for management of comorbid conditions of hyperlipidemia, hypothyroidism status post thyroidectomy for Graves, hyperlipidemia, BPH, SIMONE. Patient appears well postoperatively denies chest pain, shortness of breath, fever, chills. Review of Systems Review of Systems: Constitutional: Denies fever, denies Chills Eyes: denies blurry vision ENT: denies sore throat CVS: denies chest pain Respiratory: Denies dyspnea GI: no abdominal pain : denies dysuria MSK: denies neck pain Skin: denies rash Neuro: denies specific motor weakness Psych: denies suicidal ideation Endocrine: denies heat/cold intolerance Hematologic: denies easy bleeding Allergy: denies hives [facility] Medical History Elevated cholesterol Elevated PSA Enlarged prostate Graves disease History of hyperthyroidism Hypersomnolence Nocturnal hypoxemia Obesity (BMI 35.0-39.9 without comorbidity) SIMONE (obstructive sleep apnea) Sleep apnea Family History Father Colon cancer Mother S/P triple vessel bypass Maternal Grandmother History of heart attack Son No problems noted. Daughter No problems noted. Paternal Grandmother Diabetes mellitus Surgical History History of thyroidectomy Hx of colonoscopy Social History Housing: House Are you a primary primary care nurse practitioner to a significant other at home: No Do you presently have visiting nurse or other home services: No Alcohol intake: current Alcohol intake frequency: a few times a week Alcohol type: beer Patient Tobacco Use Status: Current everyday Tobacco user Tobacco use type: Cigarette Cigarette Packs Per Day: 1 Cigarettes Per Day: 20.0 Years Smoked: 45 Smoked in Last 30 Days: Yes Patient Interested in Nicotine Replacement: Yes Patient Given Instructions on How to Stop Smoking: Yes Date Education Initiated: 02/18/21 Second Hand Smoke Exposure: No Use of substances other than those prescribed or required for medical reasons: Yes Substance Use Type: Marijuana Substance Use Frequency: Monthly Currently Displaying Signs/Symptoms of Drug Intoxication Withdrawal: No Have you been hit, kicked, punched, or otherwise hurt by someone within the past year? If so, by whom?: No Are you DNR?: Yes Advance Directives: No Advance Directives Information Provided: No Advance Directives on File: Yes Advance Directives Date on File: 10/14/20 Do you have thoughts of harming others: None Recently lost weight without trying: No Eating poorly because of decreased appetite: No Nutrition Risks: No Nutritional Risk Current occupational status: employed Current occupation: rt handed/[employer] Allergies Allergy/AdvReac Type Severity Reaction Status Date / Time No Known Allergies Allergy Verified 02/24/21 06:27 [No Known Allergies*] Active Medications: Current Medications Generic Name Dose Route Start Last Admin Trade Name Freq PRN Reason Stop Dose Admin Acetaminophen 650 mg 02/24/21 11:51 Acetaminophen 325 Mg Tablet PO Q6H PRN Pain, Mild (Pain Scale 1-3) Atorvastatin Calcium 20 mg 02/25/21 09:00 Atorvastatin Calcium 20 Mg Tablet PO DAILY REPLACED BY [facility] Celecoxib 200 mg 02/24/21 21:00 Celecoxib 200 Mg Capsule PO BID REPLACED BY [facility] Docusate Sodium 100 mg 02/24/21 21:00 Docusate Sodium 100 Mg Capsule PO BID REPLACED BY [facility] Finasteride 5 mg 02/25/21 09:00 Finasteride 5 Mg Tablet PO DAILY SHARI Hydromorphone HCl 0.25 mg 02/24/21 11:51 02/24/21 13:15 Hydromorphone Hcl 0.5 Mg/0.5 Ml Syringe IVPUSH 0.25 mg Q4H PRN Administration Pain, Severe (Pain Scale 7-10) Protocol Dextrose/Sodium Chloride 1,000 mls @ 80 mls/hr 02/24/21 11:51 02/24/21 13:16 D51/2ns IVCONT 80 mls/hr .[id number] SHARI Administration Levothyroxine Sodium 150 mcg 02/24/21 14:00 Levothyroxine Sodium 150 Mcg Tablet PO DAILY@0630 SHARI Ondansetron HCl 4 mg 02/24/21 11:51 Ondansetron Hcl 4 Mg/2 Ml Vial IVPUSH Q8H PRN Nausea and Vomiting Oxycodone HCl 10 mg 02/24/21 11:51 Oxycodone Hcl Immed Release 5 Mg Tablet PO Q4H PRN Pain, Moderate (Pain Scale 4-6 Oxycodone HCl 10 mg 02/24/21 21:00 Oxycodone Hcl Er 10 Mg Tab.Er.12h PO BID SHARI Sodium Chloride 3 ml 02/24/21 16:00 0.9 % Sodium Chloride Flush 3 Ml Syringe IVFLUSH QSHIFT SHARI Tamsulosin HCl 0.4 mg 02/25/21 09:00 Tamsulosin Hcl 0.4 Mg Capsule PO DAILY SHARI Physical Exam Vital Signs and Narrative: Vital Signs: Last Vital Signs Temp 97.5 F 02/24/21 12:05 Pulse 71 02/24/21 12:05 Resp 18 02/24/21 12:05 BP 122/61 02/24/21 13:20 Pulse Ox 95 02/24/21 12:05 Body Mass Index 34.2 General: no acute distress HEENT: atraumatic Neck: normal to visual inspection CVS: S1, S2, RRR Resp: CTA bilateral Chest: non tender GI: soft, non tender, non distended : no CVA tenderness Skin: no rashes Extremities: no edema Neuro: Oriented X3, grossly intact Psych: cooperative Results Labs CBC and Chem 7: 01/27/21 09:32 01/27/21 09:32 Labs: Laboratory Results - last 24 hr 02/24/21 06:20 COVID-19 (ZACK) Negative COVID-19 Clin Com See Note Assessment and Plan (1) Osteoarthritis of left hip: Status: Acute 66M presented for elective left madalyn HLD lipitor BPH proscar flomax hypothyroid synthroid
[2021-02-24] MEDS: oxyCODONE HCl Immed Release 5 MG TABLET 10 MG PO ×2 (15:38→20:30)
[2021-02-24] MEDS: Docusate Sodium 100 MG CAPSULE PO (20:28)
[2021-02-24] MEDS: Celecoxib 200 MG CAPSULE PO (20:29)
[2021-02-25] VITALS (9 sets, daily range): BP systolic 101–120; BP diastolic 50–64; PULSE 58–76; RESP 16–20; TEMP 36.2–36.8; O2SAT 65–99
[2021-02-25] MEDS: Levothyroxine Sodium 150 MCG TABLET PO (06:17)
[2021-02-25 06:31] LABS: MANUAL DIFF FLAG NO
[2021-02-25 06:41] LABS: Basophils Percent Auto 0.2 % (0-2); Eosinophils Absolute Auto 0.1 X10*3/uL (0.0-0.4); Eosinophils Percent Auto 0.5 % (0-4); Hemoglobin 12.1 g/dl (14.0-18.0); Imm Gran Abs Auto 0.05 X10*3/uL (0.00-0.03); Imm Gran Pct Auto 0.4 % (0.0-0.4); Lymphocytes Absolute Auto 2.3 X10*3/uL (1.2-4.9); Mean Corpuscular HGB Conc 32.7 g/dl (31.0-36.0); Mean Corpuscular Volume 91.6 fL (80-98); Mean Platelet Volume 9.1 fL (9.4-12.4); Monocytes Absolute Auto 1.4 X10*3/uL (0.1-1.2); Monocytes Percent Auto 11.4 % (2-11); Neutrophils Absolute Auto 8.2 X10*3/uL (2.0-8.3); Neutrophils Percent Auto 68.5 % (45-73); Platelet Count 245 X10*3/uL (160-400); Red Blood Count 4.04 X10*6/uL (4.60-5.80); White Blood Count 11.9 X10*3/uL (4.8-10.8)
[2021-02-25 07:09] LABS: Anion Gap 14 (12-20); Blood Urea Nitrogen 13 mg/dL (9-16); Calcium 8.1 mg/dL (8.4-10.2); Carbon Dioxide 26 mmol/L (22-29); Chloride 104 mmol/L (96-108); Creatinine Clr Calc Pharmacy 119.4; Estimated Glomerular Filt Rate > 60; Glucose Fasting 123 mg/dL (60-99); Potassium 4.6 mmol/L (3.3-5.1); Sodium 139 mmol/L (135-145)
--- NOTE | 2021-02-25 07:19 | P.PNOP_ITS ---
Subjective Subjective Date of Service: 02/25/21 Interval history: POD 1 LT KIMBER No overnight events, resting in bed, has been out of bed with PT, ambulating to bathroom Denies cp, sob, palpitations. No concerns. Physical Exam Vital Signs: Vital Signs: Last Vital Signs Temp 97.3 F 02/25/21 03:26 Pulse 62 02/25/21 03:26 Resp 17 02/25/21 03:26 BP 120/50 L 02/25/21 03:26 Pulse Ox 96 02/25/21 03:26 Body Mass Index 34.2 Const: General: cooperative, healthy appearing and no acute distress Resp: Effort & Inspection: normal respiratory effort and able to speak in complete sentences Cardio: Rate: regular rate Peripheral pulses: Peripheral pulses 2+ throughout GI: Palpation (GI): Soft to palpation Skin: General skin exam: no rashes or lesions noted Extrem: Other: Bandage soiled with blood. No erythema or effusion. Calf supple nontender. Neurovascularly intact. Procedures Date of Service Date of Service: 02/25/21 Progress Note: A&P Assessment and plan (1) History of total left hip replacement: Status: Acute Assessment and Plan: * Continue pain mgmnt * Begin Aspirin for dvt ppx * begin PT for LT KIMBER * Dispo planning-Pending PT eval, pain mgmnt Fall Risk Details Current Medications: Current Medications Generic Name Dose Route Start Last Admin Trade Name Freq PRN Reason Stop Dose Admin Acetaminophen 650 mg 02/24/21 11:51 Acetaminophen 325 Mg Tablet PO Q6H PRN Pain, Mild (Pain Scale 1-3) Aspirin 325 mg 02/25/21 09:00 Aspirin 325 Mg Tablet PO BID [facility] Atorvastatin Calcium 20 mg 02/25/21 09:00 Atorvastatin Calcium 20 Mg Tablet PO DAILY SHARI Celecoxib 200 mg 02/24/21 21:00 02/24/21 20:29 Celecoxib 200 Mg Capsule PO 200 mg BID SHARI Administration Docusate Sodium 100 mg 02/24/21 21:00 02/24/21 20:28 Docusate Sodium 100 Mg Capsule PO 100 mg BID SHARI Administration Finasteride 5 mg 02/25/21 09:00 Finasteride 5 Mg Tablet PO DAILY SHARI Hydromorphone HCl 0.25 mg 02/24/21 11:51 02/24/21 13:15 Hydromorphone Hcl 0.5 Mg/0.5 Ml Syringe IVPUSH 0.25 mg Q4H PRN Administration Pain, Severe (Pain Scale 7-10) Protocol Dextrose/Sodium Chloride 1,000 mls @ 80 mls/hr 02/24/21 11:51 02/24/21 23:56 D51/2ns IVCONT 80 mls/hr .[id number] SHARI Administration Levothyroxine Sodium 150 mcg 02/24/21 14:00 02/25/21 06:17 Levothyroxine Sodium 150 Mcg Tablet PO 150 mcg DAILY@0630 SHARI Administration Ondansetron HCl 4 mg 02/24/21 11:51 Ondansetron Hcl 4 Mg/2 Ml Vial IVPUSH Q8H PRN Nausea and Vomiting Oxycodone HCl 10 mg 02/24/21 11:51 02/24/21 20:30 Oxycodone Hcl Immed Release 5 Mg Tablet PO 10 mg Q4H PRN Administration Pain, Moderate (Pain Scale 4-6 Oxycodone HCl 10 mg 02/24/21 21:00 02/24/21 20:29 Oxycodone Hcl Er 10 Mg Tab.Er.12h PO 10 mg BID SHARI Administration Sodium Chloride 3 ml 02/24/21 16:00 02/25/21 00:40 0.9 % Sodium Chloride Flush 3 Ml Syringe IVFLUSH Not Given QSHIFT SHARI Tamsulosin HCl 0.4 mg 02/25/21 09:00 Tamsulosin Hcl 0.4 Mg Capsule PO DAILY [facility] Time Spent With Patient Time: Total time spent is greater than 50% in coordination of care (as documented) at patient's floor/unit and/or counseling patient: Time with patient: 15 - 24 minutes Quality Stroke Does the patient have a stroke diagnosis?: No VTE Prior VTE?: No VTE Risk Level:: Surgical - high VTE Device Contraindication: N/A - Device Ordered VTE Drug Contraindication: N/A - Med Ordered
[2021-02-25] MEDS: Celecoxib 200 MG CAPSULE PO ×2 (08:17→21:03)
[2021-02-25] MEDS: Atorvastatin Calcium 20 MG TABLET PO (08:17)
[2021-02-25] MEDS: oxyCODONE HCl Immed Release 5 MG TABLET 10 MG PO ×3 (08:17→17:08)
[2021-02-25] MEDS: Docusate Sodium 100 MG CAPSULE PO ×2 (08:17→21:03)
[2021-02-25] MEDS: Acetaminophen 325 MG TABLET 650 MG PO ×2 (08:17→15:53)
[2021-02-25] MEDS: Finasteride 5 MG TABLET PO (08:18)
[2021-02-25] MEDS: Aspirin 325 MG TABLET PO ×2 (08:18→21:02)
[2021-02-25] MEDS: Tamsulosin HCL 0.4 MG CAPSULE PO (08:18)
[2021-02-25] MEDS: oxyCODONE HCl ER 10 MG TAB.ER.12H PO ×2 (09:14→21:04)
[2021-02-25] MEDS: 0.9 % Sodium Chloride Flush 3 ML SYRINGE IVFLUSH ×2 (09:14→21:04)
--- NOTE | 2021-02-25 09:34 | HO.POSTANES ---
Post Anesthesia Evaluation Post Anesthesia Evaluation Vital Signs: Vital Signs Temp Pulse Resp BP Pulse Ox 02/25/21 09:22 67 111/54 L 98 02/25/21 07:59 97.9 F 67 18 111/54 L 98 02/25/21 03:26 97.3 F 62 17 120/50 L 96 02/24/21 23:53 97.3 F 60 17 114/56 L 96 Anesthesia: General Endotracheal-GETA Mental Status: Awake Pain Control: Satisfactory Nausea/Vomiting: None Hydration: Adequate Anesthesia-Related Issues: No Anes. Related Issues
--- NOTE | 2021-02-25 09:42 | HO.PM.IMPN ---
Subjective Subjective Date of Service: 02/25/21 Interval History: some pain, able to ambulate Cardiovascular Cardiovascular: Reports no additional cardiovascular complaints Respiratory Respiratory: Reports no additional respiratory complaints Physical Exam Vital Signs: Vital Signs: Last Vital Signs Temp 97.9 F 02/25/21 07:59 Pulse 67 02/25/21 09:22 Resp 18 02/25/21 07:59 BP 111/54 L 02/25/21 09:22 Pulse Ox 98 02/25/21 09:22 Body Mass Index 34.2 General: AO X 3, no acute distress Resp: CTA bilateral CVS: S1,S2,RRR GI: soft, non tender, non distended Neuro: motor grossly intact Psych: appropriate affect Objective Data Current Medications Generic Name Dose Route Start Last Admin Trade Name Freq PRN Reason Stop Dose Admin Acetaminophen 650 mg 02/24/21 11:51 02/25/21 08:17 Acetaminophen 325 Mg Tablet PO 650 mg Q6H PRN Administration Pain, Mild (Pain Scale 1-3) Aspirin 325 mg 02/25/21 09:00 02/25/21 08:18 Aspirin 325 Mg Tablet PO 325 mg BID SHARI Administration Atorvastatin Calcium 20 mg 02/25/21 09:00 02/25/21 08:17 Atorvastatin Calcium 20 Mg Tablet PO 20 mg DAILY SHARI Administration Celecoxib 200 mg 02/24/21 21:00 02/25/21 08:17 Celecoxib 200 Mg Capsule PO 200 mg BID SHARI Administration Docusate Sodium 100 mg 02/24/21 21:00 02/25/21 08:17 Docusate Sodium 100 Mg Capsule PO 100 mg BID SHARI Administration Finasteride 5 mg 02/25/21 09:00 02/25/21 08:18 Finasteride 5 Mg Tablet PO 5 mg DAILY SHARI Administration Hydromorphone HCl 0.25 mg 02/24/21 11:51 02/24/21 13:15 Hydromorphone Hcl 0.5 Mg/0.5 Ml Syringe IVPUSH 0.25 mg Q4H PRN Administration Pain, Severe (Pain Scale 7-10) Protocol Dextrose/Sodium Chloride 1,000 mls @ 80 mls/hr 02/24/21 11:51 02/24/21 23:56 D51/2ns IVCONT 80 mls/hr .[id number] SHARI Administration Levothyroxine Sodium 150 mcg 02/24/21 14:00 02/25/21 06:17 Levothyroxine Sodium 150 Mcg Tablet PO 150 mcg DAILY@0630 SHARI Administration Ondansetron HCl 4 mg 02/24/21 11:51 Ondansetron Hcl 4 Mg/2 Ml Vial IVPUSH Q8H PRN Nausea and Vomiting Oxycodone HCl 10 mg 02/24/21 11:51 02/25/21 08:17 Oxycodone Hcl Immed Release 5 Mg Tablet PO 10 mg Q4H PRN Administration Pain, Moderate (Pain Scale 4-6 Oxycodone HCl 10 mg 02/24/21 21:00 02/25/21 09:14 Oxycodone Hcl Er 10 Mg Tab.Er.12h PO 10 mg BID SHARI Administration Sodium Chloride 3 ml 02/24/21 16:00 02/25/21 09:14 0.9 % Sodium Chloride Flush 3 Ml Syringe IVFLUSH 3 ml QSHIFT SHARI Administration Tamsulosin HCl 0.4 mg 02/25/21 09:00 02/25/21 08:18 Tamsulosin Hcl 0.4 Mg Capsule PO 0.4 mg DAILY SHARI Administration Labs CBC & Chem 7: 02/25/21 06:22 02/25/21 06:22 Labs: Laboratory Results - last 24 hr 02/25/21 02/25/21 06:22 06:22 MCV 91.6 MCH 30.0 MCHC 32.7 RDW 14.0 Plt Count 245 MPV 9.1 L Immature Gran % (Auto) 0.4 Neut % (Auto) 68.5 Lymph % (Auto) 19.0 L [place] % (Auto) 11.4 H Eos % (Auto) 0.5 Baso % (Auto) 0.2 Lymph # (Auto) 2.3 [place] # (Auto) 1.4 H Eos # (Auto) 0.1 Baso # (Auto) 0.0 Abs Immat Gran (auto) 0.05 H Absolute Neuts (auto) 8.2 Absolute Nucleated RBC 0.000 Nucleated RBC % (auto) 0.0 Anion Gap 14 Estim Creat Clear Calc 119.4 Estimated GFR > 60 Fasting Glucose 123 H Calcium 8.1 L D Assessment and Plan (1) Osteoarthritis of left hip: Status: Acute Assessment and Plan: ?66M presented for elective left kimber left KIMBER pod 1 asa for dvt prophylaxis HLD lipitor BPH proscar flomax hypothyroid s/p thyroidectomy for Graves disease synthroid Quality Stroke Does the patient have a stroke diagnosis?: No VTE Prior VTE?: No VTE Risk Level:: Surgical - high VTE Device Contraindication: N/A - Device Ordered VTE Drug Contraindication: N/A - Med Ordered
--- NOTE | 2021-02-25 12:03 | MHC.CM.PN ---
CM MET WITH PT AND WHO WAS AT BEDSIDE. PT REPORTS BEING INDEPENDENT AT BASELINE AND USING ONLY A CPAP . 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 PT REPORTS A PLAN TO CONTINUE WORKING FROM HOME UPON DC. PT CONFIRMS HIS PCP IS HARJEET BARAHONA. PT DID NOT HAVE A HCP BUT COMPLETED ONE TODAY NAMING HIS HIS AGENT. CURRENT DC PLAN IS HOME VS HOME WITH PT. TO TRANSPORT
[2021-02-25] MEDS: Dextrose 5 % and 0.45 % NaCl 1,000 ML 80 ML IVCONT (13:15)
[2021-02-26] MEDS: Dextrose 5 % and 0.45 % NaCl 1,000 ML 80 ML IVCONT (02:02)
[2021-02-26 03:48] VITALS: BP 124/56; PULSE 68; RESP 18; TEMP 37.2; O2SAT 96
[2021-02-26] MEDS: Levothyroxine Sodium 150 MCG TABLET PO (05:25)
[2021-02-26 06:18] LABS: MANUAL DIFF FLAG NO
[2021-02-26 06:22] LABS: Basophils Percent Auto 0.4 % (0-2); Eosinophils Absolute Auto 0.3 X10*3/uL (0.0-0.4); Eosinophils Percent Auto 3.2 % (0-4); Hematocrit 34.6 % (42-52); Hemoglobin 11.3 g/dl (14.0-18.0); Imm Gran Abs Auto 0.03 X10*3/uL (0.00-0.03); Imm Gran Pct Auto 0.3 % (0.0-0.4); Lymphocytes Absolute Auto 2.9 X10*3/uL (1.2-4.9); Lymphocytes Percent Auto 29.2 % (20-40); Mean Corpuscular HGB Conc 32.7 g/dl (31.0-36.0); Mean Corpuscular Hemoglobin 30.1 pg (27.0-33.0); Mean Platelet Volume 9.4 fL (9.4-12.4); Monocytes Absolute Auto 1.3 X10*3/uL (0.1-1.2); Monocytes Percent Auto 13.7 % (2-11); Neutrophils Absolute Auto 5.2 X10*3/uL (2.0-8.3); Neutrophils Percent Auto 53.2 % (45-73); Platelet Count 225 X10*3/uL (160-400); Red Blood Count 3.76 X10*6/uL (4.60-5.80); Red Cell Distribution Width 14.2 % (11.0-16.0); White Blood Count 9.8 X10*3/uL (4.8-10.8)
[2021-02-26 06:45] LABS: Anion Gap 8 (12-20); Blood Urea Nitrogen 10 mg/dL (9-16); Calcium 7.8 mg/dL (8.4-10.2); Carbon Dioxide 28 mmol/L (22-29); Chloride 108 mmol/L (96-108); Creatinine Clr Calc Pharmacy 119.4; Estimated Glomerular Filt Rate > 60; Glucose Fasting 95 mg/dL (60-99); Potassium 4.1 mmol/L (3.3-5.1); Sodium 140 mmol/L (135-145)
[2021-02-26 07:13] VITALS: BP 113/57; PULSE 66; RESP 18; TEMP 36.1; O2SAT 99
[2021-02-26] MEDS: Celecoxib 200 MG CAPSULE PO (07:40)
[2021-02-26] MEDS: oxyCODONE HCl ER 10 MG TAB.ER.12H PO (07:40)
[2021-02-26] MEDS: Aspirin 325 MG TABLET PO (07:40)
[2021-02-26] MEDS: Atorvastatin Calcium 20 MG TABLET PO (07:41)
[2021-02-26] MEDS: Docusate Sodium 100 MG CAPSULE PO (07:41)
[2021-02-26] MEDS: Finasteride 5 MG TABLET PO (07:41)
[2021-02-26] MEDS: Tamsulosin HCL 0.4 MG CAPSULE PO (07:41)
[2021-02-26] MEDS: Nicotine 21 MG PATCH.TD24 TRANSDERMA (07:41)
[2021-02-26] MEDS: oxyCODONE HCl Immed Release 5 MG TABLET 10 MG PO (07:46)
--- NOTE | 2021-02-26 08:20 | P.DS_ITS ---
DS: Providers Provider Date of Service: 02/26/21 Date of admission: 02/24/21 06:46 Primary care physician: BRYN Null Consults: 02/24/21 11:51 Consult to Hospitalist Routine Consulting Provider: Hospitalist Reason For Exam: post op medical management DS: Summary Hospital Course Hospital Course: The patient underwent a successful left total hip arthroplasty, was transferred to PACU and then to the floor to recover. During their stay, their vitals were stable, afebrile at 97.0. Labs were unremarkable, H/H 11.3/34.6. POD 1 he was started on ASA for DVT ppx, they also received PT/OT services twice a day. Prior to discharge, their dressing was change, incision clean dry and intact, new Aquacel dressing applied and the plan was to be discharged home with vna. Time Spent with Patient Time attestation: Total time spent providing and/or coordinating discharge services: Discharge coordination time: Less than 30 minutes Quality: Stroke Does the patient have a stroke diagnosis?: No Physical Exam Vital Signs: Vital Signs: Last Vital Signs Temp 97.0 F 02/26/21 07:13 Pulse 66 02/26/21 07:13 Resp 18 02/26/21 07:13 BP 113/57 L 02/26/21 07:13 Pulse Ox 99 02/26/21 07:13 Body Mass Index 34.2 Const: General: cooperative, healthy appearing and no acute distress Resp: Effort & Inspection: normal respiratory effort and able to speak in complete sentences Cardio: Rate: regular rate Peripheral pulses: Peripheral pulses 2+ throughout GI: Palpation (GI): Soft to palpation Skin: General skin exam: no rashes or lesions noted Extrem: Other: incision clean dry and intact. Vivi intact. No erythema or effusion. Calf supple nontender. Neurovascularly intact. DS: Data Data Completed and Pending Completed studies during hospitalization [Text1]: Pending at discharge 02/24/21 09:19 Surgical [PTH] Routine Labs on day of discharge: Laboratory Results - last 24 hr 02/26/21 02/26/21 05:53 05:53 WBC 9.8 RBC 3.76 L Hgb 11.3 L Hct 34.6 L MCV 92.0 MCH 30.1 MCHC 32.7 RDW 14.2 Plt Count 225 MPV 9.4 Immature Gran % (Auto) 0.3 Neut % (Auto) 53.2 Lymph % (Auto) 29.2 [place] % (Auto) 13.7 H Eos % (Auto) 3.2 Baso % (Auto) 0.4 Lymph # (Auto) 2.9 [place] # (Auto) 1.3 H Eos # (Auto) 0.3 Baso # (Auto) 0.0 Abs Immat Gran (auto) 0.03 Absolute Neuts (auto) 5.2 Absolute Nucleated RBC 0.000 Nucleated RBC % (auto) 0.0 Sodium 140 Potassium 4.1 Chloride 108 Carbon Dioxide 28 Anion Gap 8 L BUN 10 Creatinine 0.77 Estim Creat Clear Calc 119.4 Estimated GFR > 60 Fasting Glucose 95 Calcium 7.8 L Discharge Plan Discharge Patient Disposition: Home Health Service Discharge Diagnosis: s/p lt madalyn Referrals: Armando Covarrubias PA-C [Physician Turret Lathe Tender] - 2 Weeks (03/12/21 12:45 [facility] Armando Covarrubias PA-C) Discharge Medications: New docusate sodium 100 mg Capsule 100 mg PO BID Qty: 30 RF: 0 oxycodone 10 mg tablet 10 mg PO Q4H PRN (Reason: Pain, Moderate (Pain Scale 4-6) 7 Days Qty: 42 RF: 0 celecoxib 200 mg Capsule 200 mg PO BID 30 Days Qty: 60 RF: 0 acetaminophen 325 mg Tablet 650 mg PO Q6H PRN (Reason: Pain, Mild (Pain Scale 1-3)) 30 Days Qty: 240 RF: 0 aspirin 325 mg Tablet 325 mg PO BID 42 Days Qty: 84 RF: 0 Continued atorvastatin 20 mg tablet 20 mg PO DAILY Qty: 90 RF: 1 tamsulosin 0.4 mg capsule 0.4 mg PO DAILY Qty: 90 RF: 1 [facility] See Rx Instructions .MEDSUPPLY Qty: 1 RF: 0 finasteride 5 mg tablet 5 mg PO DAILY 90 Days Qty: 90 RF: 0 levothyroxine 150 mcg tablet 150 mcg PO QAM Qty: 90 RF: 1 nicotine 21 mg/24 hr patch 24 hour 1 patch transdermal Q24H 28 Days Qty: 28 RF: 0 sildenafil 100 mg tablet 100 mg PO DAILY PRN (Reason: sexual activity) 10 Days Qty: 10 RF: 3 Discharge Orders: Discharge Order (Routine); Ordered 02/26/21 Ordered By: Armando Covarrubias Diet: regular diet Activity on Discharge: Use cane or walker Stand Alone Forms: Patient Portal Discharge page Care Plan Goals: Restore function of joint Health Concerns: none Plan of Treatment: Physical Therapy Pain management DVT prophylaxis Assessment: * Physical Therapy for Total hip arthroplasty: posterior precautions, gait training, ROM, strength * Limit stair climbing * No showering, no tub bath-keep dressing clean, dry and intact * No driving x6 weeks * Continue ASA x 6 weeks * Follow up with [facility] in 2 weeks Discharge Date/Time: 02/26/21 10:26
--- NOTE | 2021-02-26 08:29 | MHC.CM.PN ---
PT CLEARED TO DC HOME TODAY WITH JAGUAR MARIN FOR HOME PT. TO TRANSPORT
[2021-02-26 09:43] VITALS: BP 113/57; PULSE 66; O2SAT 99
--- NOTE | 2021-02-26 09:54 | P.PNIM_ITS ---
Subjective Subjective Date of Service: 02/26/21 Interval History: no complaints Cardiovascular Cardiovascular: Reports no additional cardiovascular complaints Respiratory Respiratory: Reports no additional respiratory complaints Physical Exam Vital Signs: Vital Signs: Last Vital Signs Temp 97.0 F 02/26/21 07:13 Pulse 66 02/26/21 09:43 Resp 18 02/26/21 07:13 BP 113/57 L 02/26/21 09:43 Pulse Ox 99 02/26/21 09:43 Body Mass Index 34.2 General: AO X 3, no acute distress Resp: CTA bilateral CVS: S1,S2,RRR GI: soft, non tender, non distended Neuro: motor grossly intact Psych: appropriate affect Objective Data Current Medications Generic Name Dose Route Start Last Admin Trade Name Freq PRN Reason Stop Dose Admin Acetaminophen 650 mg 02/24/21 11:51 02/25/21 15:53 Acetaminophen 325 Mg Tablet PO 650 mg Q6H PRN Administration Pain, Mild (Pain Scale 1-3) Aspirin 325 mg 02/25/21 09:00 02/26/21 07:40 Aspirin 325 Mg Tablet PO 325 mg BID SHARI Administration Atorvastatin Calcium 20 mg 02/25/21 09:00 02/26/21 07:41 Atorvastatin Calcium 20 Mg Tablet PO 20 mg DAILY SHARI Administration Celecoxib 200 mg 02/24/21 21:00 02/26/21 07:40 Celecoxib 200 Mg Capsule PO 200 mg BID SHARI Administration Docusate Sodium 100 mg 02/24/21 21:00 02/26/21 07:41 Docusate Sodium 100 Mg Capsule PO 100 mg BID SHARI Administration Finasteride 5 mg 02/25/21 09:00 02/26/21 07:41 Finasteride 5 Mg Tablet PO 5 mg DAILY SHARI Administration Hydromorphone HCl 0.25 mg 02/24/21 11:51 02/24/21 13:15 Hydromorphone Hcl 0.5 Mg/0.5 Ml Syringe IVPUSH 0.25 mg Q4H PRN Administration Pain, Severe (Pain Scale 7-10) Protocol Levothyroxine Sodium 150 mcg 02/24/21 14:00 02/26/21 05:25 Levothyroxine Sodium 150 Mcg Tablet PO 150 mcg DAILY@0630 SHARI Administration Nicotine 21 mg 02/26/21 09:00 02/26/21 07:41 Nicotine 21 Mg Patch.Td24 TRANSDERMA 21 mg DAILY SHARI Administration Ondansetron HCl 4 mg 02/24/21 11:51 Ondansetron Hcl 4 Mg/2 Ml Vial IVPUSH Q8H PRN Nausea and Vomiting Oxycodone HCl 10 mg 02/24/21 11:51 02/26/21 07:46 Oxycodone Hcl Immed Release 5 Mg Tablet PO 10 mg Q4H PRN Administration Pain, Moderate (Pain Scale 4-6 Oxycodone HCl 10 mg 02/24/21 21:00 02/26/21 07:40 Oxycodone Hcl Er 10 Mg Tab.Er.12h PO 10 mg BID SHARI Administration Sodium Chloride 3 ml 02/24/21 16:00 02/26/21 07:44 0.9 % Sodium Chloride Flush 3 Ml Syringe IVFLUSH Not Given QSHIFT SHARI Tamsulosin HCl 0.4 mg 02/25/21 09:00 02/26/21 07:41 Tamsulosin Hcl 0.4 Mg Capsule PO 0.4 mg DAILY SHARI Administration Labs CBC & Chem 7: 02/26/21 05:53 02/26/21 05:53 Labs: Laboratory Results - last 24 hr 02/26/21 02/26/21 05:53 05:53 MCV 92.0 MCH 30.1 MCHC 32.7 RDW 14.2 Plt Count 225 MPV 9.4 Immature Gran % (Auto) 0.3 Neut % (Auto) 53.2 Lymph % (Auto) 29.2 Josephine % (Auto) 13.7 H Eos % (Auto) 3.2 Baso % (Auto) 0.4 Lymph # (Auto) 2.9 Josephine # (Auto) 1.3 H Eos # (Auto) 0.3 Baso # (Auto) 0.0 Abs Immat Gran (auto) 0.03 Absolute Neuts (auto) 5.2 Absolute Nucleated RBC 0.000 Nucleated RBC % (auto) 0.0 Anion Gap 8 L Estim Creat Clear Calc 119.4 Estimated GFR > 60 Fasting Glucose 95 Calcium 7.8 L Assessment and Plan (1) Osteoarthritis of left hip: Status: Acute Assessment and Plan: ?66M presented for elective left kimber left KIMBER pod 2 asa for dvt prophylaxis HLD lipitor BPH proscar flomax hypothyroid s/p thyroidectomy for Graves disease synthroid Quality Stroke Does the patient have a stroke diagnosis?: No VTE Prior VTE?: No VTE Risk Level:: Surgical - high VTE Device Contraindication: N/A - Device Ordered VTE Drug Contraindication: N/A - Med Ordered
== END 2021-02-26 10:26 | disposition home health service (06) | DRG 301 ==
LOC: HO.SSSA 06:56 → HO.S3 10:59
PROVIDERS: Physician Assistant; Admitting Provider Orthopaedic Surgery; PCP Nurse Practitioner Family; Visit Provider Orthopaedic Surgery
PROC: 0SRB03A Replacement of Left Hip Joint with Ceramic Synthetic Substitute, Uncemented, Open Approach (ICD-10-PCS; CPT 27130; principal; 2021-02-24 07:30)
DX: M16.12 Unilateral primary osteoarthritis, left hip (principal); E03.9 Hypothyroidism, unspecified; F17.210 Nicotine dependence, cigarettes, uncomplicated; G47.30 Sleep apnea, unspecified; Z20.822 Contact with and (suspected) exposure to COVID-19; Z71.6 Tobacco abuse counseling; E78.5 Hyperlipidemia, unspecified; N40.0 Benign prostatic hyperplasia without lower urinary tract symptoms; Z79.890 Hormone replacement therapy; Z79.899 Other long term (current) drug therapy
CPT/HCPCS: 36415; 72170; 80048; 84439; 84443; 85025; 86850; 86900; 86901; 87635; 87640; 87641; 88304; 88311; 93005; 97110; 97116; 97161; 97165; 97535; C1776; J0131; J0690; J1100; J1170; J1885; J2250; J2405; J3010

== ENCOUNTER → 2021-03-06 10:30 | Outpatient (BNVA) | payer OTHER, SELFPAY | PROVIDERS: Visit Provider Physician Assistant ==

== ENCOUNTER → 2021-03-12 12:22 | Outpatient (BNVA) | payer OTHER, SELFPAY | PROVIDERS: Visit Provider Physician Assistant ==

== ENCOUNTER 2021-03-13 09:43 | Outpatient (REF) | payer OTHER, SELFPAY ==
[2021-03-13 12:08] LABS: PSA,Total (Free>4and<10) 3.38 ng/mL (0.00-4.00)
== END 2021-03-13 09:44 | disposition home or self-care (01) ==
LOC: HO.HMGCLDS 09:43
PROVIDERS: PCP Nurse Practitioner Family; Visit Provider Urology
DX: Z12.5 Encounter for screening for malignant neoplasm of prostate (principal); N13.8 Other obstructive and reflux uropathy; N40.1 Benign prostatic hyperplasia with lower urinary tract symptoms
CPT/HCPCS: 36415; 84153

== ENCOUNTER → 2021-03-20 09:04 | Outpatient (BNVA) | payer OTHER, SELFPAY | PROVIDERS: PCP Nurse Practitioner Family; Visit Provider Urology ==

== ENCOUNTER 2021-04-01 11:00 | Outpatient (RCR) | payer OTHER, SELFPAY ==
--- NOTE | 2021-03-18 17:44 | MHC.PT.EP ---
[facility] [place] Office [place] [facility] [place] [facility] [address] Irene Arriaga [address] [phone] F: [phone] F: [phone] F: [phone] F: [phone] Physical Therapy Plan of Care Date of Evaluation: Date of Surgery: 02/24/21 Diagnosis: S/P L KIMBER Assessment: Pt is a 66/yo M referred to PT for eval/treat of S/P L KIMBER to address longstanding functional limitations of decreased tolerance for WB activities such as ambulation, squatting, standing, and negotiating stairs, as well as performing functional activities such as putting on shoes and socks secondary to limited L hip ROM, decreased L hip strength, and gait deviation. Pt is deemed appropriate to receive to address his physical impairment d/t L KIMBER and improve his functional abilities. Frequency and Duration: The patient will be seen 1x/wk for 5 wk Short Term Goals: initiate HEP I w/ evidence of compliance pt will be able to perform bed mobility without breaking his hip precaution pt will educate PT about his hip precaution Penitentiary Goals: pt will be able to ambulate 2 blocks without the help of AD and with little to no difficulty pt will be able to negotiate 1 flight of stairs without the help of AD and with little to no difficulty. pt will improve his LEFI score by the increment of 2 MDC/MCID; initial score 41/80 Treatment Plan: Modalities to reduce pain, spasms and effusion. Manual therapy to restore motion and function. Therapeutic exercise to improve strength and flexibility. Neuromuscular re-education for posture and balance. Therapeutic activities to return to functional activities of daily living. Electronically signed by: Javad Conde PT Please sign and return to therapist. Thank you for your referral.
== END 2021-10-28 09:16 | disposition home or self-care (01) ==
LOC: HO.PTCHIC 11:00
PROVIDERS: PCP Nurse Practitioner Family; Visit Provider Physician Assistant
DX: Z96.642 Presence of left artificial hip joint (principal)
CPT/HCPCS: 97110; 97161; 97530

== ENCOUNTER → 2021-04-09 13:36 | Outpatient (BNVA) | payer OTHER, SELFPAY | PROVIDERS: Visit Provider Physician Assistant | DX: Z96.642 Presence of left artificial hip joint (principal) ==

== ENCOUNTER 2021-05-25 08:19 | Outpatient (REF) | payer OTHER, SELFPAY ==
--- NOTE | ~2021-05-25 | XR_ITS ---
EXAMINATION: LEFT HIP AND PELVIS X-RAY CLINICAL INFORMATION: Left hip replacement. Pain. COMPARISON: Previous x-ray January 2021 TECHNIQUE: AP view of the pelvis and frog-leg view of the left hip FINDINGS: There is a left hip replacement in satisfactory position. No fracture, dislocation or x-ray evidence of loosening is seen. Bones of the pelvis are unremarkable. There are mild degenerative changes of the visualized lower lumbar spine. XR/XR hip LT 1V IMPRESSION: Satisfactory appearance of left hip replacement.
--- NOTE | ~2021-05-25 | XR_ITS ---
EXAMINATION: LEFT HIP AND PELVIS X-RAY CLINICAL INFORMATION: Left hip replacement. Pain. COMPARISON: Previous x-ray January 2021 TECHNIQUE: AP view of the pelvis and frog-leg view of the left hip FINDINGS: There is a left hip replacement in satisfactory position. No fracture, dislocation or x-ray evidence of loosening is seen. Bones of the pelvis are unremarkable. There are mild degenerative changes of the visualized lower lumbar spine. XR/XR pelvis 1-2V IMPRESSION: Satisfactory appearance of left hip replacement.
== END 2021-05-25 08:20 | disposition home or self-care (01) ==
LOC: HO.HOSX 08:19
PROVIDERS: Visit Provider Orthopaedic Surgery
DX: Z47.1 Aftercare following joint replacement surgery (principal); Z96.642 Presence of left artificial hip joint
CPT/HCPCS: 72170; 73501

== ENCOUNTER 2021-10-07 06:22 | Outpatient (REF) | payer OTHER, SELFPAY ==
[2021-10-07 12:36] LABS: PSA,Total (Free>4and<10) 0.98 ng/mL (0.00-4.00)
== END 2021-10-07 06:23 | disposition home or self-care (01) ==
LOC: HO.HMGCLDS 06:22
PROVIDERS: PCP Nurse Practitioner Family; Visit Provider Urology
DX: Z12.5 Encounter for screening for malignant neoplasm of prostate (principal); N40.1 Benign prostatic hyperplasia with lower urinary tract symptoms; N13.8 Other obstructive and reflux uropathy
CPT/HCPCS: 36415; 84153

== ENCOUNTER → 2021-10-13 08:20 | Outpatient (BNVA) | payer OTHER, SELFPAY | PROVIDERS: PCP Nurse Practitioner Family; Visit Provider Urology | DX: Z13.89 Encounter for screening for other disorder (principal) ==

== ENCOUNTER 2022-05-06 07:59 | Outpatient (REF) | payer OTHER, SELFPAY ==
[2022-05-06 11:17] LABS: Appearance Urine Clear; Color Urine Yellow; Glucose Urine UA Negative (Negative); Leukocyte Esterase Urine Moderate (2+) (Negative); Nitrite Urine Negative (Negative); UMIC TRIGGER UACC YES; Urine Blood Small (1+) (Negative); Urine Ketones Negative (Negative); Urine Protein Negative (Neg-Trace)
[2022-05-06 11:38] LABS: Bacteria Urine None Seen (None Seen); Hyaline Casts Urine 0-2 /LPF (0-2); Squamous Epithelial Cell Urine 0-2 /HPF (0-2); WBC Urine 0-5 /HPF (0-5)
[2022-05-06 12:12] LABS: Alanine Aminotransferase 25 U/L (0-40); Albumin Level 4.1 g/dL (3.5-5.0); Alkaline Phosphatase 55 U/L (39-117); Anion Gap 13 (12-20); Aspartate Amino Transferase 12 U/L (5-37); Bilirubin Total 0.6 mg/dL (0.0-1.0); Blood Urea Nitrogen 15 mg/dL (9-16); Carbon Dioxide 28 mmol/L (22-29); Chloride 108 mmol/L (96-108); Cholesterol 136 mg/dL; Estimated Glomerular Filt Rate > 60; Glucose Fasting 105 mg/dL (60-99); HDL Cholesterol 53 mg/dL; LDL Cholesterol Calculated 75 mg/dl; Prostate Specific Antigen 2.94 ng/mL (<0.05-4.0); Sodium 144 mmol/L (135-145); Total Protein 7.8 g/dL (6.5-8.0); Triglycerides 43 mg/dL
== END 2022-05-06 08:00 | disposition home or self-care (01) ==
LOC: HO.HMGCLDS 07:59
PROVIDERS: Absent Provider Nurse Practitioner Family; PCP Nurse Practitioner Family; Visit Provider Urology
DX: Z00.00 Encounter for general adult medical examination without abnormal findings (principal); Z12.5 Encounter for screening for malignant neoplasm of prostate; N13.8 Other obstructive and reflux uropathy; N40.1 Benign prostatic hyperplasia with lower urinary tract symptoms
CPT/HCPCS: 36415; 80053; 80061; 81001; 81003; 84153; 84443

== ENCOUNTER 2023-02-09 07:05 | Outpatient (REF) | payer OTHER, SELFPAY ==
[2023-02-09 11:14] LABS: MANUAL DIFF FLAG NO
[2023-02-09 11:29] LABS: Appearance Urine Clear; Color Urine Yellow; Glucose Urine UA Negative (Negative); Leukocyte Esterase Urine Moderate (2+) (Negative); Nitrite Urine Negative (Negative); UMIC TRIGGER UACC YES; Urine Blood Trace (Negative); Urine Ketones Negative (Negative); Urine Protein Negative (Neg-Trace)
[2023-02-09 11:31] LABS: Basophils Absolute Auto 0.1 X10*3/uL (0.0-0.2); Basophils Percent Auto 0.8 % (0-2); Eosinophils Absolute Auto 0.3 X10*3/uL (0.0-0.4); Hematocrit 43.8 % (42.0-52.0); Hemoglobin 14.2 g/dl (14.0-18.0); Imm Gran Abs Auto 0.01 X10*3/uL (0.00-0.03); Imm Gran Pct Auto 0.1 % (0.0-0.4); Lymphocytes Absolute Auto 2.7 X10*3/uL (1.2-4.9); Mean Corpuscular HGB Conc 32.4 g/dl (31.0-36.0); Mean Corpuscular Volume 89.6 fL (80.0-98.0); Mean Platelet Volume 9.5 fL (9.4-12.4); Monocytes Absolute Auto 0.7 X10*3/uL (0.1-1.2); Neutrophils Absolute Auto 3.7 x10*3/uL (2.0-8.3); Neutrophils Percent Auto 50.1 % (45-73); Platelet Count 347 X10*3/uL (160-400); Red Blood Count 4.89 X10*6/uL (4.60-5.80); Red Cell Distribution Width 14.1 % (11.0-16.0); White Blood Count 7.4 X10*3/uL (4.8-10.8)
[2023-02-09 11:47] LABS: Bacteria Urine None Seen (None Seen); Hyaline Casts Urine 0-2 /LPF (0-2); RBC Urine 0-2 /HPF (0-2); Squamous Epithelial Cell Urine 0-2 /HPF (0-2); WBC Urine 0-5 /HPF (0-5)
[2023-02-09 12:19] LABS: Alanine Aminotransferase 23 U/L (0-40); Alkaline Phosphatase 56 U/L (39-117); Anion Gap 10 (12-20); Aspartate Amino Transferase 13 U/L (5-37); Bilirubin Total 0.5 mg/dL (0.0-1.0); Blood Urea Nitrogen 15 mg/dL (9-16); Calcium 8.9 mg/dL (8.4-10.2); Carbon Dioxide 26 mmol/L (22-29); Chloride 108 mmol/L (96-108); Cholesterol 143 mg/dL; Estimated Glomerular Filt Rate > 60; Glucose Fasting 104 mg/dL (60-99); HDL Cholesterol 51 mg/dL; LDL Cholesterol Calculated 79 mg/dl; Potassium 4.2 mmol/L (3.3-5.1); Sodium 140 mmol/L (135-145); TSH reflex Free T4 0.62 uIU/mL (0.32-4.0); Total Protein 7.8 g/dL (6.5-8.0); Triglycerides 65 mg/dL
== END 2023-02-09 07:06 | disposition home or self-care (01) ==
LOC: HO.HMGCLDS 07:05
PROVIDERS: PCP Nurse Practitioner Family; Visit Provider Nurse Practitioner Family
DX: Z00.00 Encounter for general adult medical examination without abnormal findings (principal); E55.9 Vitamin D deficiency, unspecified
CPT/HCPCS: 36415; 80053; 80061; 81001; 82306; 84443; 85025

== ENCOUNTER 2023-02-10 09:42 | Outpatient (AMB) | payer OTHER, SELFPAY ==
--- NOTE | 2023-02-10 09:58 | A.OFFPC_ITS ---
Vital Signs 02/10/23 09:59 Height 5 ft 10 in Weight 267 lb 2 oz BMI 38.3 BP 140/86 H Blood Pressure Location Rt brachial Position Sitting Pulse 66 Pulse Source Pulse Oximeter Pulse Oximetry (%) 95 Oxygen Delivery Method Room Air Intake Visit Reasons: Medications Allergies No Known Allergies [No Known Allergies*] Allergy (Verified 02/10/23 11:50) Medication List - Last Reconciled 02/10/23 by BRYN Murray atorvastatin 20 mg PO DAILY finasteride 5 mg PO DAILY 90 days levothyroxine 150 mcg PO QAM losartan 25 mg PO DAILY 90 days sildenafil 100 mg PO DAILY PRN 30 days tamsulosin 0.4 mg PO DAILY 90 days walker Folding Front wheeled walker Tobacco use date assessed: 02/10/23 Fall risk assessment: No Falls in past year Last assessed Fall Risk: 02/10/23 Dental Screening Dental Screen Date: 02/10/23 Did you have a dental visit in the last 12 months?: Yes Did you have a dental problem in the last 6 months where you did not have access to dental care?: No Was dental information given to patient?: Patient has dentist HPI Medications HPI Details Pt is here for a PE. Labs were already performed. PSA is up to date, follows up with urology. Colon screen is up to date. Blood pressure is elevated today. Will start losartan 25mg. Will reassess kidney function after starting this med. Denies chest pain, shortness of breath, headache, dizziness, and blurred vision. Pt reports a skin lesion to his bilat temples. Will refer to derm. Pt is no longer smoking. He is gaining weight, states that he is eating more. Pt's goal is to lose weight. pt is not currently interested in the LDCT program we have through [facility]. [facility] Medical History Elevated cholesterol Elevated PSA Enlarged prostate Graves disease History of hyperthyroidism Hypersomnolence Nocturnal hypoxemia Obesity (BMI 35.0-39.9 without comorbidity) SIMONE (obstructive sleep apnea) Osteoarthritis of left hip Sleep apnea Surgical History History of thyroidectomy Hx of colonoscopy Family History Father Colon cancer Mother S/P triple vessel bypass Maternal Grandmother History of heart attack Son No problems noted. Daughter No problems noted. Paternal Grandmother Diabetes mellitus Social History Housing: House Are you a primary healthcare recruiter to a significant other at home: No Do you presently have visiting nurse or other home services: No Alcohol intake: current Alcohol intake frequency: a few times a week Alcohol type: beer Patient Tobacco Use Status: Former Tobacco user Quit Date: 02/23/2021 Tobacco use type: Cigarette Cigarette Packs Per Day: 1 Cigarettes Per Day: 20.0 Years Smoked: 45 e-Cigarette/Vaping Use: Never Used Second Hand Smoke Exposure: No Substance Use Type: Marijuana Advance Directives Date on File: 10/14/20 service: No Current occupational status: employed Current occupation: rt handed/[employer] Current occupational exposures/hazards: No Cognitive needs: No Hearing needs: No Vision needs: No Questionnaire Thrive Questionnaire Date Thrive assessed: 09/30/21 RAFITA-7 AMB Questionnaire RAFITA-7 Date RAFITA - 7 assessed: 09/30/21 Source: Developed by Drs. Dandre Sequeira, Kate Harmon, Lyle Mares and colleagues, with an educational reno from [employer]. Review of Systems Const Denies chills and Denies fever(s) Eyes Denies blurry vision ENT Denies vertigo, Denies dizziness and Denies sore throat Card Denies chest pain at rest, Denies chest pain with activity, Denies diaphoresis, Denies dyspnea and Denies dyspnea on exertion Resp Denies cough, Denies dyspnea, Denies dyspnea on exertion and Denies wheezing GI Denies abdominal pain, Denies melena, Denies hematochezia, Denies constipation, Denies diarrhea and Denies loose stools Denies hematuria Musc Denies numbness and Denies tingling Skin/Breast Denies lesions Neuro Denies vertigo, Denies dizziness, Denies numbness and Denies tingling Psych Denies anxiety, Denies depression, Denies homicidal ideation, Denies suicidal ideation and Denies other (substance abuse) Aller/Immun Denies wheezing Physical exam (Primary Care) Vital Signs: Last Vital Signs Pulse 66 02/10/23 09:59 BP 140/86 H 02/10/23 09:59 Pulse Ox 95 02/10/23 09:59 Oxygen Delivery Method Room Air 02/10/23 09:59 BMI result Body Mass Index 38.3 Tobacco/Smoking Status: Tobacco use Status Tobacco use date assessed 02/10/23 02/10/23 10:04 Patient Tobacco Use Status Former Tobacco user 02/10/23 10:04 Tobacco use type Cigarette 02/10/23 10:04 e-Cigarette/Vaping Use Never Used 02/10/23 10:04 Thrive Assessment: Date of Thrive Assessment Date Thrive assessed 09/30/21 02/10/23 10:04 Const General: cooperative Nutritional Appearance: obese morbidly obese Orientation/consciousness: patient oriented x3 HENMT Head: Yes normal to inspection, Yes normocephalic and Yes atraumatic Ears: TM's normal bilaterally Eyes General: appearance normal, both eyes and all related structures Alignment and Position: alignment normal and position normal Neck Neck: Yes normal visual inspection and Yes no lymphadenopathy Thyroid: Thyroid normal Resp Effort & Inspection: normal respiratory effort Auscultation: clear to auscultation bilaterally Cardio Rate: regular rate Rhythm: regular rhythm Heart sounds: S1 normal heart sound present, S2 normal heart sound present and no murmurs GI Palpation (GI): Soft to palpation and nontender Auscultation: normal bowel sounds Male General Exam: Yes normal external exam Penis: normal penis Scrotum: scrotum normal, testes descended bilaterally and no inguinal hernias Testes: no testicular mass Skin Other: right scientology region with slightly raised crusty discolored lesion, left scientology with flat macular lesion, less dry Rashes: no rashes Neuro General: patient oriented x3, moves all extremities, no focal motor deficits and deep tendon reflexes 2+ bilaterally Romberg Test: Negative Extrem Right lower extremity: edema Details: pitting and 1+ Left lower extremity: edema Details: pitting and 1+ Psych Appearance: grossly normal Mental Status: mental status grossly normal Speech and movement: Normal speech and movement present Affect: normal affect Attitude: cooperative Thought process: Normal thought process present Thought content: Normal thought content present Insight: Good insight present (Psych) Judgement: Good judgement present (Psych) Assessment and Plan Assessment & Plan (1) Facial lesion: Code(s): L98.9 - Disorder of the skin and subcutaneous tissue, unspecified Plan: Referred to derm (2) Physical exam: Code(s): Z00.00 - Encounter for general adult medical examination without abnormal findings (3) HTN (hypertension): Code(s): I10 - Essential (primary) hypertension (4) Obesity: Code(s): E66.9 - Obesity, unspecified Plan The patient agreed to the use of a medical staffing coordinator for this encounter. Scribed for BRYN Shaffer by Sabrina Mccullough medical staffing coordinator, on 02/10/2023 at 10:15 EST. Orders: Orders Comprehensive Met. Panel 2 Months I10 - Essential (primary) hypertension AMB EKG-In Office Today Z00.00 - Encounter for general adult medical examination without abnormal findings Referrals Dermatology Referral L98.9 - Disorder of the skin and subcutaneous tissue, unspecified Medications: New losartan 25 mg PO DAILY 90 tabs 0RF 90 days Coding Level of Care Code Est Pt Prev Care >65y(01318) Diagnoses Facial lesion L98.9 Physical exam Z00.00 HTN (hypertension) I10 Obesity E66.9
[2023-02-10 09:59] VITALS: BP 140/86; PULSE 66; O2SAT 95; BMI 38.3
== END 2023-02-10 11:58 | disposition home or self-care (01) ==
PROVIDERS: Visit Provider Nurse Practitioner Family
DX: Z00.00 Encounter for general adult medical examination without abnormal findings (principal); L98.9 Disorder of the skin and subcutaneous tissue, unspecified; Z68.38 Body mass index [BMI] 38.0-38.9, adult; I10 Essential (primary) hypertension; E66.9 Obesity, unspecified
CPT/HCPCS: 99397

== ENCOUNTER 2023-05-14 18:28 | Emergency (ER) | payer OTHER, SELFPAY ==
[2023-05-14 18:35] VITALS: BP 135/89; PULSE 59; RESP 20; TEMP 36.9; O2SAT 96; BMI 36.2
[2023-05-14 18:47] LABS: MANUAL DIFF FLAG NO
[2023-05-14 18:49] LABS: Basophils Absolute Auto 0.1 X10*3/uL (0.0-0.2); Basophils Percent Auto 0.6 % (0-2); Eosinophils Absolute Auto 0.5 X10*3/uL (0.0-0.4); Eosinophils Percent Auto 4.6 % (0-4); Hematocrit 41.7 % (42.0-52.0); Hemoglobin 14.2 g/dl (14.0-18.0); Imm Gran Abs Auto 0.02 X10*3/uL (0.00-0.03); Imm Gran Pct Auto 0.2 % (0.0-0.4); Lymphocytes Absolute Auto 3.5 X10*3/uL (1.2-4.9); Lymphocytes Percent Auto 35.9 % (20-40); Mean Corpuscular HGB Conc 34.1 g/dl (31.0-36.0); Mean Corpuscular Hemoglobin 30.1 pg (27.0-33.0); Mean Corpuscular Volume 88.3 fL (80.0-98.0); Monocytes Absolute Auto 1.1 X10*3/uL (0.1-1.2); Monocytes Percent Auto 10.8 % (2-11); Neutrophils Absolute Auto 4.7 x10*3/uL (2.0-8.3); Neutrophils Percent Auto 47.9 % (45-73); Platelet Count 297 X10*3/uL (160-400); Red Blood Count 4.72 X10*6/uL (4.60-5.80); Red Cell Distribution Width 14.2 % (11.0-16.0); White Blood Count 9.8 X10*3/uL (4.8-10.8)
[2023-05-14 19:05] LABS: Alanine Aminotransferase 18 U/L (0-40); Alkaline Phosphatase 51 U/L (39-117); Anion Gap 11 (12-20); Aspartate Amino Transferase 13 U/L (5-37); Bilirubin Total 0.4 mg/dL (0.0-1.0); Blood Urea Nitrogen 15 mg/dL (9-16); Calcium 8.6 mg/dL (8.4-10.2); Carbon Dioxide 23 mmol/L (22-29); Chloride 110 mmol/L (96-108); Creatinine Clr Calc Pharmacy 97.8; Estimated Glomerular Filt Rate > 60; Glucose Random 107 mg/dL (60-115); Potassium 3.8 mmol/L (3.3-5.1); Sodium 140 mmol/L (135-145); Total Protein 7.5 g/dL (6.5-8.0)
== END 2023-05-14 22:26 | disposition left against medical advice (07) ==
PROVIDERS: Emergency Provider Emergency Medicine; PCP Nurse Practitioner Family
DX: R10.32 Left lower quadrant pain (principal); R11.0 Nausea; I10 Essential (primary) hypertension
CPT/HCPCS: 36415; 80053; 85025; 99281; 99283

== ENCOUNTER 2023-08-15 13:56 | Outpatient (AMB) | payer OTHER, SELFPAY ==
[2023-08-15 13:57] VITALS: BP 132/80; PULSE 78; O2SAT 98; BMI 35.4
--- NOTE | 2023-08-15 13:57 | A.OFFPC_ITS ---
Vital Signs 08/15/23 13:57 Height 5 ft 10 in Weight 247 lb BMI 35.4 BP 132/80 Blood Pressure Location Lt brachial Position Sitting Pulse 78 Pulse Source Pulse Oximeter Pulse Oximetry (%) 98 Oxygen Delivery Method Room Air Intake Visit Reasons: 6 month follow up Intake Note: pt is here for 6 month follow up, started new bp medication in january, did at home readings but didnt track the readings Transportation Solutions Manager Required: No Accompanied by: Self / Same As Patient Allergies No Known Allergies [No Known Allergies*] Allergy (Verified 08/15/23 17:29) Medication List - Last Reconciled 08/15/23 by BRYN Murray atorvastatin 20 mg PO DAILY finasteride 5 mg PO DAILY 30 days levothyroxine 150 mcg PO QAM losartan 25 mg PO DAILY 90 days sildenafil 100 mg PO DAILY PRN 30 days tamsulosin 0.4 mg PO DAILY 30 days walker Folding Front wheeled walker Tobacco use date assessed: 08/15/23 Fall risk assessment: No Falls in past year Last assessed Fall Risk: 08/15/23 Dental Screening Dental Screen Date: 08/15/23 Did you have a dental visit in the last 12 months?: Yes Did you have a dental problem in the last 6 months where you did not have access to dental care?: No Was dental information given to patient?: Patient has dentist HPI 6 month follow up HPI Details HTN: Blood pressure is stable, managed with losartan 25mg. Denies chest pain, shortness of breath, headache, dizziness, and blurred vision. [facility] Medical History Sleep apnea treated with continuous positive airway pressure (CPAP) Osteoarthritis of left hip Sleep apnea Elevated cholesterol Nocturnal hypoxemia SIMONE (obstructive sleep apnea) Hypersomnolence Obesity (BMI 35.0-39.9 without comorbidity) Enlarged prostate History of hyperthyroidism Elevated PSA Graves disease Surgical History Hx of colonoscopy History of thyroidectomy Family History Father Colon cancer Mother S/P triple vessel bypass Maternal Grandmother History of heart attack Son No problems noted. Daughter No problems noted. Paternal Grandmother Diabetes mellitus Social History Housing: House Are you a primary assurance services manager health care to a significant other at home: No Do you presently have visiting nurse or other home services: No Alcohol intake: current Alcohol intake frequency: a few times a week Alcohol type: beer Patient Tobacco Use Status: Former Tobacco user Quit Date: 02/23/2021 Tobacco use type: Cigarette Cigarette Packs Per Day: 1 Cigarettes Per Day: 20.0 Years Smoked: 45 Packs Per Year: 45 Packs per year/per ci.00 e-Cigarette/Vaping Use: Never Used Second Hand Smoke Exposure: No Substance Use Type: Marijuana Advance Directives Date on File: 10/14/20 service: No Current occupational status: employed Current occupation: rt handed/[employer] Current occupational exposures/hazards: No Cognitive needs: No Hearing needs: No Vision needs: No Questionnaire PHQ-9 Over the last 2 weeks, how often have you been bothered by any of the following problems? 1. Little interest or pleasure in doing things: not at all 2. Feeling down, depressed, or hopeless: not at all 3. Trouble falling or staying asleep, or sleeping too much: not at all 4. Feeling tired or having little energy: not at all 5. Poor appetite or overeating: not at all 6. Feeling bad about yourself - or that you are a failure or have let yourself or your family down: not at all 7. Trouble concentrating on things, such as reading the newspaper or watching television: not at all 8. Moving or speaking so slowly that other people could have noticed. Or the opposite - being so fidgety or restless that you have been moving around a lot more than usual: not at all 9. Thoughts that you would be better off or of hurting yourself in some way: not at all Total score: 0 Depression Screening Interpretation: Negative Depression Screening Done: Yes 27959 - PHQ-9 Billing: Yes Source: Developed by Drs. Dandre Sequeira, Kate Harmon, Lyle Mares and colleagues, with an educational reno from [employer]. Thrive Questionnaire Date Thrive assessed: 08/15/23 I am a: Patient What is your living situation today?: I have a steady place to live Within the past 12 months, did the food you bought not last and you didn't have the money to get more?: Never true Within the past 12 months, did you worry whether your food would run out before you got money to buy more?: Never true Do you have trouble paying for medicines?: No Do you have trouble getting transportation to medical appointments?: No Do you have trouble paying your heating and electricity bill?: No Do you have trouble taking care of your child, family member or friend?: No Do you have trouble with day-to-day activities such as bathing, preparing meals, shopping, managing finances, etc.?: No Are you currently unemployed and looking for a job?: No Are you interested in more education?: No Please select the resources that you would like help with: None Currently or been in a relationship where the following occur: no concerns reported THRIVE Score: 0 AUDIT C Alcohol Use Questionnaire (AUDIT-C) 1. How often do you have a drink containing alcohol?: 2-3 times a week 2. How many drinks containing alcohol do you have on a typical day when you are drinking?: 1 or 2 3. How often do you have six or more drinks on one occasion?: Never Total Score: 3 Score Reviewed/Action Taken: Yes RAFITA-7 AMB Questionnaire RAFITA-7 Date RAFITA - 7 assessed: 08/15/23 Feeling nervous, anxious, or on edge: 0 = Not at all Not being able to stop or control worryin = Not at all Worrying too much about different things: 0 = Not at all Trouble relaxin = Not at all Being so restless that it is hard to sit still: 0 = Not at all Becoming easily annoyed or irritable: 0 = Not at all Feeling afraid as if something awful might happen: 0 = Not at all Total RAFITA-7 score (0-4 normal; 5-9 mild; 10-14 moderate; 15-21 severe): 0 Source: Developed by Drs. Dandre Sequeira, Kate Harmon, Lyle Mares and colleagues, with an educational reno from [employer] RAFITA-7 Assessment Billing RAFITA-7 Assessment Tool: RAFITA-7 Assessment 99943 Review of Systems Const Reports as per HPI Physical exam (Primary Care) Vital Signs: Last Vital Signs Pulse 78 08/15/23 13:57 BP 132/80 08/15/23 13:57 Pulse Ox 98 08/15/23 13:57 Oxygen Delivery Method Room Air 08/15/23 13:57 BMI result Body Mass Index 35.4 Tobacco/Smoking Status: Tobacco use Status Tobacco use date assessed 08/15/23 08/15/23 13:58 Patient Tobacco Use Status Former Tobacco user 08/15/23 13:58 Tobacco use type Cigarette 08/15/23 13:58 e-Cigarette/Vaping Use Never Used 08/15/23 13:58 PHQ-9: PHQ-9 Score PHQ-9: Total score 0 08/15/23 14:17 Depression Screening Interpretation: Negative Thrive Assessment: Date of Thrive Assessment Date Thrive assessed 08/15/23 08/15/23 14:06 Currently or been in a relationship where the following occur: no concerns reported Const General: cooperative Nutritional Appearance: obese Orientation/consciousness: patient oriented x3 Resp Effort & Inspection: normal respiratory effort Auscultation: clear to auscultation bilaterally Cardio Rate: regular rate Rhythm: regular rhythm Heart sounds: S1 normal heart sound present and S2 normal heart sound present Neuro General: patient oriented x3 Psych Appearance: grossly normal Mental Status: mental status grossly normal Speech and movement: Normal speech and movement present Affect: normal affect Attitude: cooperative Thought process: Normal thought process present Thought content: Normal thought content present Insight: Good insight present (Psych) Judgement: Good judgement present (Psych) Assessment and Plan Assessment & Plan (1) HTN (hypertension): Code(s): I10 - Essential (primary) hypertension Plan: Labs ordered Plan The patient agreed to the use of a medical review coordinator for this encounter. Scribed for BRYN Shaffer by Sabrina Mccullough medical review coordinator, on 08/15/2023 at 14:15 EST. Orders: Orders Complete Blood Count Auto Diff Today I10 - Essential (primary) hypertension Comprehensive [place]. Panel Fast Today I10 - Essential (primary) hypertension Lipid Panel Today I10 - Essential (primary) hypertension TSH reflex Free T4 Today I10 - Essential (primary) hypertension UA CC w/rflx Micro + Cult Today I10 - Essential (primary) hypertension Coding Level of Care Code Est Pt Level 3 (79895) Diagnoses HTN (hypertension) I10 Additional Codes RAFITA-7 Assessment Billing - RAFITA-7 Assessment Tool: RAFITA-7 Assessment 05564 ([id number])
== END 2023-08-15 14:30 | disposition home or self-care (01) ==
PROVIDERS: PCP Nurse Practitioner Family; Visit Provider Nurse Practitioner Family
DX: I10 Essential (primary) hypertension (principal)
CPT/HCPCS: 99213

== ENCOUNTER 2023-09-13 06:49 | Outpatient (REF) | payer OTHER, SELFPAY ==
[2023-09-13 12:17] LABS: PSA,Total (Free>4and<10) 0.51 ng/mL (0.00-4.00)
== END 2023-09-13 06:50 | disposition home or self-care (01) ==
LOC: HO.HMGCLDS 06:49
PROVIDERS: PCP Nurse Practitioner Family; Visit Provider Urology
DX: Z12.5 Encounter for screening for malignant neoplasm of prostate (principal); N40.1 Benign prostatic hyperplasia with lower urinary tract symptoms; N13.8 Other obstructive and reflux uropathy
CPT/HCPCS: 36415; 84153

== ENCOUNTER 2023-09-16 08:30 | Outpatient (AMB) | payer OTHER, SELFPAY ==
--- NOTE | 2023-09-16 08:33 | A.OFFVIS_ITS ---
Intake Intake Visit Reasons: 6m PSA(set) Intake Note: Patient is Present for Follow Up Urology Medication: Finasteride, Sildenafil, Tamsulosin Antibiotic Allergies: None Blood Thinners: None PVR: 50ML Allergies No Known Allergies [No Known Allergies*] Allergy (Verified 08/15/23 17:29) Medication List - Last Reconciled 09/16/23 by Reid Capellan MD atorvastatin 20 mg PO DAILY finasteride 5 mg PO DAILY 30 days levothyroxine 150 mcg PO QAM losartan 25 mg PO DAILY 90 days sildenafil 100 mg PO DAILY PRN 30 days tamsulosin 0.4 mg PO DAILY 30 days walker Folding Front wheeled walker HPI HPI Comments History of Present Illness Details Scotty Garcia is a very pleasant male. They are a patient of Dr. Gloria. They are seen in the office today for the following urologic conditions. - lower urinary tract symptoms - elevated PSA - erectile dysfunction PSA 0.5 Remains well-controlled with tamsulosin and finasteride 12 month follow-up Lower Urinary Tract Symptoms: Current visit is for further evaluation of, predominate obstructive symptoms. Current treatment includes tamsulosin and finasteride Prostate Symptom Score 11/ , Moderate (9-19), Bother 3 11/11 , Mild (0-8), Bother 2. Symptoms include / , incomplete emptying, weak stream, nocturia (>2), intermittency, and are progressing 11/11 , nocturia (>2), incomplete emptying, and are improving. Prior Prostate Score moderate. PSA 11/11 6.5 - prior score as high as 9, has 2x biopsy in [place] - 03/17 3.4, 10/16 1.0, 05/18 2.9, 09/17 0.5 Prostate volume 30-50gm. Testing at next visit will include bladder scan. Treatment plan continue - finasteride and tamsulosin Erectile dysfunction Respond to 100 mg p.o. sildenafil [facility] Medical History Sleep apnea treated with continuous positive airway pressure (CPAP) Osteoarthritis of left hip Sleep apnea Elevated cholesterol Nocturnal hypoxemia SIMONE (obstructive sleep apnea) Hypersomnolence Obesity (BMI 35.0-39.9 without comorbidity) Enlarged prostate History of hyperthyroidism Elevated PSA Graves disease Surgical History Hx of colonoscopy History of thyroidectomy Family History Father Colon cancer Mother S/P triple vessel bypass Maternal Grandmother History of heart attack Son No problems noted. Daughter No problems noted. Paternal Grandmother Diabetes mellitus Social History (Reviewed 08/15/23 @ 17:31 by K[facility]UR [facility] Housing: House Are you a primary daycare worker to a significant other at home: No Do you presently have visiting nurse or other home services: No Alcohol intake: current Alcohol intake frequency: a few times a week Alcohol type: beer Patient Tobacco Use Status: Former Tobacco user Quit Date: 02/23/2021 Tobacco use type: Cigarette Cigarette Packs Per Day: 1 Cigarettes Per Day: 20.0 Years Smoked: 45 e-Cigarette/Vaping Use: Never Used Second Hand Smoke Exposure: No Substance Use Type: Marijuana Advance Directives Date on File: 10/14/20 service: No Current occupational status: employed Current occupation: rt handed/[employer] Current occupational exposures/hazards: No Cognitive needs: No Hearing needs: No Vision needs: No Review of Systems Const Denies chills and Denies fever(s) Card Reports no additional complaints and Denies syncope Resp Denies cough GI Denies abdominal pain and Denies heartburn Reports as per HPI and Denies change in libido Neuro Denies syncope Psych Denies change in libido Endo Denies change in libido Physical Exam Const General: cooperative, healthy appearing, comfortable and no acute distress Orientation/consciousness: patient oriented x3 HEENT Face and sinus: Yes normal facial exam Mouth: moist mucous membranes Neck Neck: Yes normal visual inspection, Yes full ROM and Yes trachea midline Chest Chest palpation & inspection: normal inspection of the chest Resp Effort & Inspection: normal respiratory effort, able to speak in complete sentences and no respiratory distress GI Inspection: Yes normal to inspection Back/Spine/Pelvis Cervical Spine: normal cervical lordosis Thoracic/Lumbar Spine: thoracic and lumbar spine normal to inspection Skin General skin exam: no rashes or lesions noted Neuro General: patient oriented x3, gait normal, tone normal and moves all extremities Extrem General: Yes normal to inspection and Yes capillary refill normal Office Procedures Post Void Residual Post Residual Void Post Void Residual (PVR): 50 [id number] Void Residual by ultrasound Assessment & Plan Assessment & Plan (1) Erectile dysfunction: Code(s): N52.9 - Male erectile dysfunction, unspecified (2) BPH w urinary obs/LUTS: Code(s): N40.1 - Benign prostatic hyperplasia with lower urinary tract symptoms; N13.8 - Other obstructive and reflux uropathy Plan Twelve month follow-up tele Orders: Orders Prostate Specific Antigen 364 Days R97.20 - Elevated prostate specific antigen [PSA] AMB Post Void Residual by ultrasound Today N13.8 - Other obstructive and reflux uropathy, N40.1 - Benign prostatic hyperplasia with lower urinary tract symptoms Medications: Changed From tamsulosin 0.4 mg PO DAILY 30 days 30 caps 3RF N13.8 - Other obstructive and reflux uropathy, N40.1 - Benign prostatic hyperplasia with lower urinary tract symptoms To tamsulosin 0.4 mg PO DAILY 90 caps 3RF 90 days N13.8 - Other obstructive and reflux uropathy, N40.1 - Benign prostatic hyperplasia with lower urinary tract symptoms From finasteride 5 mg PO DAILY 30 days 30 tabs 3RF N40.1 - Benign prostatic hyperplasia with lower urinary tract symptoms, R33.9 - Retention of urine, u nspecified To finasteride 5 mg PO DAILY 90 tabs 3RF 90 days N40.1 - Benign prostatic hyperplasia with lower urinary tract symptoms, R33.9 - Retention of urine, unspecified Patient Instructions: Imaging studies, laboratory and physical exam results were discussed and reviewed in detail. No major barriers to patient understanding were identified. An opportunity to ask questions regarding the treatment plan was provided. All questions were answered. The patient expressed understanding and agreement with the above treatment plan. The patient is aware they should contact our office by phone for worsening of their current condition or the appearance of new urologic symptoms. Compliance is encouraged with any medications and followup testing that is ordered. It is a privilege to participate in the urologic care of your patient. If you have any questions or concerns regarding treatment for the above conditions, or other urologic issues, please do not hesitate to contact me. The office telephone contact is [phone]. This note is constructed using voice recognition software. While every effort has been made to ensure accuracy sharebroker errors may have been included. Yours sincerely, Dr Reid Capellan MDLAITH [facility] - Urology Providers of Expert, Compassionate Care for the Genitourinary System Coding Level of Care Code Est Pt Level 4 (55022) Diagnoses Erectile dysfunction N52.9 BPH w urinary obs/LUTS N40.1; N13.8 CPT Codes Post Residual Void - PVR CPT Code: 39558-Ovlm Void Residual by ultrasound ([id number])
== END 2023-09-16 09:05 | disposition home or self-care (01) ==
PROVIDERS: PCP Nurse Practitioner Family; Visit Provider Urology
DX: N52.9 Male erectile dysfunction, unspecified (principal); N40.1 Benign prostatic hyperplasia with lower urinary tract symptoms; N13.8 Other obstructive and reflux uropathy
CPT/HCPCS: 99213

== ENCOUNTER → 2023-09-16 08:30 | Outpatient (BNVA) | payer OTHER, SELFPAY | PROVIDERS: PCP Nurse Practitioner Family; Visit Provider Urology | DX: N52.9 Male erectile dysfunction, unspecified (principal); N40.1 Benign prostatic hyperplasia with lower urinary tract symptoms; N13.8 Other obstructive and reflux uropathy; Z79.899 Other long term (current) drug therapy | CPT/HCPCS: 51798 ==

== ENCOUNTER 2024-02-14 07:00 | Outpatient (REF) | payer OTHER, SELFPAY ==
[2024-02-14 10:05] LABS: MANUAL DIFF FLAG NO
[2024-02-14 10:10] LABS: Basophils Absolute Auto 0.1 X10*3/uL (0.0-0.2); Basophils Percent Auto 0.9 % (0-2); Eosinophils Absolute Auto 0.5 X10*3/uL (0.0-0.4); Eosinophils Percent Auto 5.9 % (0-4); Hematocrit 43.9 % (42.0-52.0); Hemoglobin 14.7 g/dl (14.0-18.0); Imm Gran Abs Auto 0.02 X10*3/uL (0.00-0.03); Imm Gran Pct Auto 0.3 % (0.0-0.4); Lymphocytes Absolute Auto 3.1 X10*3/uL (1.2-4.9); Lymphocytes Percent Auto 40.7 % (20-40); Mean Corpuscular HGB Conc 33.5 g/dl (31.0-36.0); Mean Corpuscular Hemoglobin 30.4 pg (27.0-33.0); Mean Corpuscular Volume 90.9 fL (80.0-98.0); Mean Platelet Volume 9.4 fL (9.4-12.4); Monocytes Absolute Auto 0.8 X10*3/uL (0.1-1.2); Monocytes Percent Auto 10.3 % (2-11); Neutrophils Absolute Auto 3.2 x10*3/uL (2.0-8.3); Neutrophils Percent Auto 41.9 % (45-73); Platelet Count 303 X10*3/uL (160-400); Red Blood Count 4.83 X10*6/uL (4.60-5.80); Red Cell Distribution Width 14.2 % (11.0-16.0); White Blood Count 7.7 X10*3/uL (4.8-10.8)
[2024-02-14 10:18] LABS: Appearance Urine Clear; Color Urine Dark Yellow; Glucose Urine UA Negative (Negative); Leukocyte Esterase Urine Small (1+) (Negative); Nitrite Urine Negative (Negative); PH 6.5 (5.0-9.0); UMIC TRIGGER UACC YES; Urine Blood Trace (Negative); Urine Ketones Negative (Negative); Urine Protein Trace mg/dL (Neg-Trace)
[2024-02-14 10:36] LABS: Bacteria Urine None Seen (None Seen); Hyaline Casts Urine 0-2 /LPF (0-2); Squamous Epithelial Cell Urine 0-2 /HPF (0-2); UACC Culture Trigger YES; WBC Urine 0-5 /HPF (0-5)
[2024-02-14 10:43] LABS: Alanine Aminotransferase 21 U/L (0-40); Albumin Level 4.1 g/dL (3.5-5.0); Alkaline Phosphatase 47 U/L (39-117); Anion Gap 10 (12-20); Aspartate Amino Transferase 14 U/L (5-37); Bilirubin Total 0.5 mg/dL (0.0-1.0); Blood Urea Nitrogen 16 mg/dL (9-16); Carbon Dioxide 26 mmol/L (22-29); Chloride 110 mmol/L (96-108); Cholesterol 132 mg/dL (<200); Estimated Glomerular Filt Rate > 60; Glucose Fasting 106 mg/dL (60-99); HDL Cholesterol 51 mg/dL (>40); LDL Cholesterol Calculated 70 mg/dL (<100); Potassium 3.9 mmol/L (3.3-5.1); Sodium 142 mmol/L (135-145); Total Protein 7.5 g/dL (6.5-8.0); Triglycerides 56 mg/dL (<150)
[2024-02-14 13:15] LABS: Free T4 (Free Thyroxine) 1.09 ng/dL (0.71-1.85)
== END 2024-02-14 07:01 | disposition home or self-care (01) ==
LOC: HO.HMGCLDS 07:00
PROVIDERS: PCP Nurse Practitioner Family; Visit Provider Nurse Practitioner Family
DX: I10 Essential (primary) hypertension (principal); R82.90 Unspecified abnormal findings in urine
CPT/HCPCS: 36415; 80053; 80061; 81001; 81003; 84439; 84443; 85025; 87086

== ENCOUNTER 2024-02-16 10:16 | Outpatient (AMB) | payer OTHER, SELFPAY ==
[2024-02-16 10:35] VITALS: BP 132/80; PULSE 78; O2SAT 94; BMI 35.7
--- NOTE | 2024-02-16 10:35 | A.OFFPC_ITS ---
Vital Signs 02/16/24 10:35 Height 5 ft 10 in Weight 249 lb BMI 35.7 BP 132/80 Blood Pressure Location Rt brachial Position Sitting Pulse 78 Pulse Source Pulse Oximeter Pulse Oximetry (%) 94 Intake Visit Reasons: Annual PE Intake Note: pt is here for annual exam Contract Analyst Required: No Allergies No Known Allergies [No Known Allergies*] Allergy (Verified 02/16/24 11:02) Medication List - Last Reconciled 02/16/24 by BRYN Murray atorvastatin 20 mg PO DAILY finasteride 5 mg PO DAILY 90 days levothyroxine 150 mcg PO QAM losartan 25 mg PO DAILY 90 days sildenafil 100 mg PO DAILY PRN 30 days tamsulosin 0.4 mg PO DAILY 90 days walker Folding Front wheeled walker Tobacco use date assessed: 08/15/23 Fall risk assessment: No Falls in past year Last assessed Fall Risk: 02/16/24 Dental Screening Dental Screen Date: 08/15/23 HPI Annual PE HPI Details Pt is here for a PE. Labs were already performed. Colon screen is up to date. PSA is up to date, sees urology. Denies dribbling with urination, weak stream, and frequent nocturia. Pt is a smoker, recently started smoking again, refuses low-dose CTs. Pt's TSH was low. Will repeat in 2 months. [facility] Medical History Sleep apnea treated with continuous positive airway pressure (CPAP) Osteoarthritis of left hip Sleep apnea Elevated cholesterol Nocturnal hypoxemia SIMONE (obstructive sleep apnea) Hypersomnolence Obesity (BMI 35.0-39.9 without comorbidity) Enlarged prostate History of hyperthyroidism Elevated PSA Graves disease Surgical History Hx of colonoscopy History of thyroidectomy Family History Father Colon cancer Mother S/P triple vessel bypass Maternal Grandmother History of heart attack Son No problems noted. Daughter No problems noted. Paternal Grandmother Diabetes mellitus Social History Housing: House Are you a primary health care law specialist to a significant other at home: No Do you presently have visiting nurse or other home services: No Alcohol intake: current Alcohol intake frequency: a few times a week Alcohol type: beer Patient Tobacco Use Status: Former Tobacco user Tobacco use type: Cigarette Cigarette Packs Per Day: 1 Cigarettes Per Day: 20.0 Years Smoked: 45 e-Cigarette/Vaping Use: Never Used Second Hand Smoke Exposure: No Substance Use Type: Marijuana Advance Directives Date on File: 10/14/20 service: No Current occupational status: employed Current occupation: rt handed/[employer] Current occupational exposures/hazards: No Cognitive needs: No Hearing needs: No Vision needs: No Questionnaire PHQ-9 Over the last 2 weeks, how often have you been bothered by any of the following problems? 1. Little interest or pleasure in doing things: not at all 2. Feeling down, depressed, or hopeless: not at all 3. Trouble falling or staying asleep, or sleeping too much: not at all 4. Feeling tired or having little energy: not at all 5. Poor appetite or overeating: not at all 6. Feeling bad about yourself - or that you are a failure or have let yourself or your family down: not at all 7. Trouble concentrating on things, such as reading the newspaper or watching television: not at all 8. Moving or speaking so slowly that other people could have noticed. Or the opposite - being so fidgety or restless that you have been moving around a lot more than usual: not at all 9. Thoughts that you would be better off or of hurting yourself in some way: not at all Total score: 0 Depression Screening Interpretation: Negative Depression Screening Done: Yes 52088 - PHQ-9 Billing: Yes Source: Developed by Drs. Dandre Sequeira, Kate Harmon, Lyle Mares and colleagues, with an educational reno from [employer] Thrive Questionnaire Date Thrive assessed: 02/16/24 I am a: Patient What is your living situation today?: I have a steady place to live Within the past 12 months, did the food you bought not last and you didn't have the money to get more?: Often true Within the past 12 months, did you worry whether your food would run out before you got money to buy more?: Never true Do you have trouble paying for medicines?: No Do you have trouble getting transportation to medical appointments?: No Do you have trouble paying your heating and electricity bill?: No Do you have trouble taking care of your child, family member or friend?: No Do you have trouble with day-to-day activities such as bathing, preparing meals, shopping, managing finances, etc.?: No Are you currently unemployed and looking for a job?: No Are you interested in more education?: No Please select the resources that you would like help with: None Currently or been in a relationship where the following occur: I choose not to answer THRIVE Score: 1 AUDIT C Alcohol Use Questionnaire (AUDIT-C) 1. How often do you have a drink containing alcohol?: 2-4 times a month 2. How many drinks containing alcohol do you have on a typical day when you are drinking?: 1 or 2 3. How often do you have six or more drinks on one occasion?: Less than monthly Total Score: 3 Score Reviewed/Action Taken: Yes RAFITA-7 AMB Questionnaire RAFITA-7 Date RAFITA - 7 assessed: 08/15/23 Feeling nervous, anxious, or on edge: 0 = Not at all Not being able to stop or control worryin = Not at all Worrying too much about different things: 0 = Not at all Trouble relaxin = Not at all Being so restless that it is hard to sit still: 0 = Not at all Becoming easily annoyed or irritable: 0 = Not at all Feeling afraid as if something awful might happen: 0 = Not at all Total RAFITA-7 score (0-4 normal; 5-9 mild; 10-14 moderate; 15-21 severe): 0 Source: Developed by Drs. Dandre Sequeira, Kate Harmon, Lyle Mares and colleagues, with an educational reno from [employer] RAFITA-7 Assessment Billing RAFITA-7 Assessment Tool: RAFITA-7 Assessment 11438 Review of Systems Const Denies chills and Denies fever(s) Eyes Denies blurry vision ENT Denies vertigo, Denies dizziness and Denies sore throat Card Denies chest pain at rest, Denies chest pain with activity, Denies diaphoresis, Denies dyspnea and Denies dyspnea on exertion Resp Denies cough, Denies dyspnea, Denies dyspnea on exertion and Denies wheezing GI Denies abdominal pain, Denies melena, Denies hematochezia, Denies constipation, Denies diarrhea and Denies loose stools Denies hematuria Musc Denies numbness and Denies tingling Skin/Breast Denies lesions Neuro Denies vertigo, Denies dizziness, Denies numbness and Denies tingling Psych Denies anxiety, Denies depression, Denies homicidal ideation, Denies suicidal ideation and Denies other (substance abuse) Aller/Immun Denies wheezing Physical exam (Primary Care) Vital Signs: Last Vital Signs Pulse 78 02/16/24 10:35 BP 132/80 02/16/24 10:35 Pulse Ox 94 02/16/24 10:35 BMI result Body Mass Index 35.7 Tobacco/Smoking Status: Tobacco use Status Tobacco use date assessed 08/15/23 02/16/24 10:37 Patient Tobacco Use Status Former Tobacco user 02/16/24 10:37 Tobacco use type Cigarette 02/16/24 10:37 e-Cigarette/Vaping Use Never Used 02/16/24 10:37 PHQ-9: PHQ-9 Score PHQ-9: Total score 0 02/16/24 11:02 Depression Screening Interpretation: Negative Thrive Assessment: Date of Thrive Assessment Date Thrive assessed 02/16/24 02/16/24 10:37 Currently or been in a relationship where the following occur: I choose not to answer Const General: cooperative Nutritional Appearance: obese morbidly obese Orientation/consciousness: patient oriented x3 HENMT Head: Yes normal to inspection, Yes normocephalic and Yes atraumatic Ears: TM's normal bilaterally Eyes General: appearance normal, both eyes and all related structures Alignment and Position: alignment normal and position normal Neck Neck: Yes normal visual inspection and Yes no lymphadenopathy Thyroid: Thyroid normal Resp Effort & Inspection: normal respiratory effort Auscultation: clear to auscultation bilaterally Cardio Rate: regular rate Rhythm: regular rhythm Heart sounds: S1 normal heart sound present, S2 normal heart sound present and no murmurs GI Palpation (GI): Soft to palpation and nontender Auscultation: normal bowel sounds Male General Exam: Yes normal external exam Penis: normal penis Scrotum: scrotum normal, testes descended bilaterally and no inguinal hernias Testes: no testicular mass Skin Rashes: no rashes Neuro General: patient oriented x3, moves all extremities, no focal motor deficits and deep tendon reflexes 2+ bilaterally Romberg Test: Negative Extrem Right lower extremity: edema Details: pitting and 1+ Left lower extremity: edema Details: pitting and 1+ Psych Appearance: grossly normal Mental Status: mental status grossly normal Speech and movement: Normal speech and movement present Affect: normal affect Attitude: cooperative Thought process: Normal thought process present Thought content: Normal thought content present Insight: Good insight present (Psych) Judgement: Good judgement present (Psych) Assessment and Plan Assessment & Plan (1) Screening PSA (prostate specific antigen): Code(s): Z12.5 - Encounter for screening for malignant neoplasm of prostate (2) Low TSH level: Code(s): R79.89 - Other specified abnormal findings of blood chemistry Plan The patient agreed to the use of a medical corps officer for this encounter. Scribed for BRYN Shaffer by Sabrina Mccullough medical corps officer, on 02/16/2024 at 10:55 EST. Orders: Orders TSH reflex Free T4 2 Months R79.89 - Other specified abnormal findings of blood chemistry Medications: Refilled atorvastatin 20 mg PO DAILY 90 tabs 1RF levothyroxine 150 mcg PO QAM 90 tabs 1RF losartan 25 mg PO DAILY 90 days 90 tabs 1RF Coding Level of Care Code Est Pt Prev Care >65y(07391) Diagnoses Screening PSA (prostate specific antigen) Z12.5 Low TSH level R79.89 Additional Codes RAFITA-7 Assessment Billing - RAFITA-7 Assessment Tool: RAFITA-7 Assessment 47582 ([id number])
== END 2024-02-16 11:13 | disposition home or self-care (01) ==
PROVIDERS: PCP Nurse Practitioner Family; Visit Provider Nurse Practitioner Family
DX: Z00.00 Encounter for general adult medical examination without abnormal findings (principal); R79.89 Other specified abnormal findings of blood chemistry; Z12.5 Encounter for screening for malignant neoplasm of prostate
CPT/HCPCS: 99397

== ENCOUNTER 2024-08-21 06:59 | Outpatient (REF) | payer OTHER, SELFPAY ==
[2024-08-21 10:45] LABS: TSH reflex Free T4 0.27 uIU/mL (0.32-4.0)
[2024-08-21 11:54] LABS: Free T4 (Free Thyroxine) 1.16 ng/dL (0.71-1.85)
== END 2024-08-21 07:00 | disposition home or self-care (01) ==
LOC: HO.HMGCLDS 06:59
PROVIDERS: PCP Nurse Practitioner Family; Visit Provider Nurse Practitioner Family
DX: R79.89 Other specified abnormal findings of blood chemistry (principal)
CPT/HCPCS: 36415; 84439; 84443

== ENCOUNTER 2024-08-23 08:07 | Outpatient (AMB) | payer OTHER, SELFPAY ==
[2024-08-23 08:25] VITALS: BP 120/80; PULSE 83; TEMP 36.7; O2SAT 94; BMI 37.4
--- NOTE | 2024-08-23 08:25 | MHC.PC.OV ---
Vital Signs 08/23/24 08:25 Height 5 ft 10 in Weight 261 lb BMI 37.4 BP 120/80 Blood Pressure Location Lt brachial Position Sitting Pulse 83 Pulse Source Pulse Oximeter Temp 98.0 F Temp Source Oral Pulse Oximetry (%) 94 Intake Visit Reasons: 6 month Allergies No Known Allergies [No Known Allergies*] Allergy (Verified 08/23/24 08:25) Medication List - Last Reconciled 08/23/24 by ELAINE MurrayP- atorvastatin 20 mg PO DAILY finasteride 5 mg PO DAILY 90 days levothyroxine 137 mcg PO QAM losartan 25 mg PO DAILY 90 days sildenafil 100 mg PO DAILY PRN 30 days tamsulosin 0.4 mg PO DAILY 90 days walker Folding Front wheeled walker Tobacco use date assessed: 08/23/24 Fall risk assessment: No Falls in past year Last assessed Fall Risk: 08/23/24 Dental Screening Dental Screen Date: 08/23/24 Did you have a dental visit in the last 12 months?: Yes Did you have a dental problem in the last 6 months where you did not have access to dental care?: No Was dental information given to patient?: Patient has dentist HPI 6 month HPI Details Chief Complaint Follow-up for hyperthyroidism management. History of Present Illness The patient is a 69-year-old male presenting with hyperthyroidism. He has been managing the condition with levothyroxine, initially administered at a dosage of 150 micrograms. Following a TSH level reading of 0.27, indicative of hyperthyroidism, his medication dose is being adjusted to 137 micrograms. The patient does not report any symptoms typically associated with hyperthyroidism, such as diarrhea, tremors, jitteriness, or palpitations. Lung examination has previously shown clear results bilaterally. Plans are in place for follow-up laboratory testing in two months to reassess thyroid function and ensure appropriate medication adjustment. Social History Health Maintenance Review of Systems - Endocrine: Denies diarrhea, tremors, jitteriness, palpitations. Physical Exam General: Cooperative, healthy appearing, comfortable, no acute distress and well developed, obese Orientation: Patient oriented x3 Limitations: No limitations Head: Normal to inspection Ears: Hearing grossly normal bilaterally Nose: Normal external nose present Face and sinus: Normal facial exam Eyes: Appearance normal, both eyes and all related structures Neck: Normal visual inspection and Yes full ROM Respiratory: Lungs were fairly clear bilaterally Cardiovascular: S1 S2 normal GI: Normal to inspection. Soft to palpation and nontender Skin: No rashes or lesions noted Neuro: Patient oriented x3 Extremities: Normal to inspection Results - Labs: TSH level of 0.27. Plan 1. 27. This adjustment aims to optimize thyroid function and alleviate hyperthyroidism. The patient will undergo further lab tests in two months to monitor progress, as current symptoms do not indicate complications. Continued management will depend on these forthcoming lab results and any changes in symptoms.: Discussion Notes During today's discussion, I explained to the patient the plan to decrease the levothyroxine dosage due to a noted low TSH level with minimal symptoms. We discussed the potential outcomes of this medication adjustment and the need for follow-up lab tests in two months to reassess his thyroid function. I reassured the patient regarding the lack of current hyperthyroid symptomatology, emphasizing the importance of monitoring his condition closely moving forward, while highlighting the fact that the lung and heart examinations were unremarkable. The patient understood and agreed with the proposed management plan and the need for follow-up testing. Patient Instructions - Decrease levothyroxine dosage to 137 micrograms daily. - Return for lab tests in two months to check thyroid function. - Monitor for symptoms such as tremors, jitteriness, or palpitations, and report any new symptoms. - Continue current management until reassessment. [facility] Medical History Sleep apnea treated with continuous positive airway pressure (CPAP) Osteoarthritis of left hip Sleep apnea Elevated cholesterol Nocturnal hypoxemia SIMONE (obstructive sleep apnea) Hypersomnolence Obesity (BMI 35.0-39.9 without comorbidity) Enlarged prostate History of hyperthyroidism Elevated PSA Graves disease Surgical History Hx of colonoscopy History of thyroidectomy Family History Father Colon cancer Mother S/P triple vessel bypass Maternal Grandmother History of heart attack Son No problems noted. Daughter No problems noted. Paternal Grandmother Diabetes mellitus Social History Housing: House Are you a primary rehab care assistant to a significant other at home: No Do you presently have visiting nurse or other home services: No Alcohol intake: current Alcohol intake frequency: a few times a week Alcohol type: beer Patient Tobacco Use Status: Former Tobacco user Tobacco use type: Cigarette Cigarette Packs Per Day: 1 Cigarettes Per Day: 20.0 Years Smoked: 45 Packs Per Year: 45 Packs per year/per ci.00 e-Cigarette/Vaping Use: Never Used Second Hand Smoke Exposure: No Substance Use Type: Marijuana Advance Directives Date on File: 10/14/20 service: No Current occupational status: employed Current occupation: rt handed/[employer] Current occupational exposures/hazards: No Cognitive needs: No Hearing needs: No Vision needs: No Questionnaire PHQ-9 Over the last 2 weeks, how often have you been bothered by any of the following problems? 1. Little interest or pleasure in doing things: not at all 2. Feeling down, depressed, or hopeless: not at all 3. Trouble falling or staying asleep, or sleeping too much: not at all 4. Feeling tired or having little energy: not at all 5. Poor appetite or overeating: not at all 6. Feeling bad about yourself - or that you are a failure or have let yourself or your family down: not at all 7. Trouble concentrating on things, such as reading the newspaper or watching television: not at all 8. Moving or speaking so slowly that other people could have noticed. Or the opposite - being so fidgety or restless that you have been moving around a lot more than usual: not at all 9. Thoughts that you would be better off or of hurting yourself in some way: not at all Total score: 0 Depression Screening Interpretation: Negative Depression Screening Done: Yes 34494 - PHQ-9 Billing: Yes Source: Developed by Drs. Dandre Sequeira, Kate Harmon, Lyle Mares and colleagues, with an educational reno from [employer]. Thrive Questionnaire Date Thrive assessed: 08/23/24 I am a: Patient What is your living situation today?: I have a steady place to live Within the past 12 months, did the food you bought not last and you didn't have the money to get more?: Never true Within the past 12 months, did you worry whether your food would run out before you got money to buy more?: Never true Do you have trouble paying for medicines?: No Do you have trouble getting transportation to medical appointments?: No Do you have trouble paying your heating and electricity bill?: No Do you have trouble taking care of your child, family member or friend?: No Do you have trouble with day-to-day activities such as bathing, preparing meals, shopping, managing finances, etc.?: No Are you currently unemployed and looking for a job?: No Are you interested in more education?: No Please select the resources that you would like help with: None Currently or been in a relationship where the following occur: No concerns reported THRIVE Score: 0 AUDIT C Alcohol Use Questionnaire (AUDIT-C) 1. How often do you have a drink containing alcohol?: 2-3 times a week 2. How many drinks containing alcohol do you have on a typical day when you are drinking?: 1 or 2 3. How often do you have six or more drinks on one occasion?: Never Total Score: 3 Score Reviewed/Action Taken: Yes RAFITA-7 AMB Questionnaire RAFITA-7 Date RAFITA - 7 assessed: 08/23/24 Feeling nervous, anxious, or on edge: 0 = Not at all Not being able to stop or control worryin = Not at all Worrying too much about different things: 0 = Not at all Trouble relaxin = Not at all Being so restless that it is hard to sit still: 0 = Not at all Becoming easily annoyed or irritable: 0 = Not at all Feeling afraid as if something awful might happen: 0 = Not at all Total RAFITA-7 score (0-4 normal; 5-9 mild; 10-14 moderate; 15-21 severe): 0 Source: Developed by Drs. Dandre Sequeira, Kate Harmon, Lyle Mares and colleagues, with an educational reno from [employer]. RAFITA-7 Assessment Billing RAFITA-7 Assessment Tool: RAFITA-7 Assessment 70066 Physical exam (Primary Care) Vital Signs: Last Vital Signs Temp 98.0 F 08/23/24 08:25 Pulse 83 08/23/24 08:25 BP 120/80 08/23/24 08:25 Pulse Ox 94 08/23/24 08:25 BMI result Body Mass Index 37.4 Tobacco/Smoking Status: Tobacco use Status Tobacco use date assessed 08/23/24 08/23/24 08:28 Patient Tobacco Use Status Former Tobacco user 08/23/24 08:28 Tobacco use type Cigarette 08/23/24 08:28 e-Cigarette/Vaping Use Never Used 08/23/24 08:28 PHQ-9: PHQ-9 Score PHQ-9: Total score 0 08/23/24 08:28 Depression Screening Interpretation: Negative Thrive Assessment: Date of Thrive Assessment Date Thrive assessed 08/23/24 08/23/24 08:28 Currently or been in a relationship where the following occur: No concerns reported Coding Level of Care Code Est Pt Level 3 (20289) Diagnoses Low TSH level Additional Codes RAFITA-7 Assessment Billing - RAFITA-7 Assessment Tool: RAFITA-7 Assessment 06291 ([id number]) PHQ-9 - 95617 - PHQ-9 Billing: Yes ([id number]) Assessment & Plan Assessment & Plan (1) Low TSH level: Code(s): R7.89 - Other specified abnormal findings of blood chemistry Category: Medical Plan . Orders: Orders Comprehensive [place]. Panel Fast 2 Months - Other specified abnormal findings of blood chemistry UA CC w/rflx Micro + Cult 2 Months - Other specified abnormal findings of blood chemistry Complete Blood Count Auto Diff 2 Months - Other specified abnormal findings of blood chemistry TSH reflex Free T4 2 Months - Other specified abnormal findings of blood chemistry Lipid Panel 2 Months - Other specified abnormal findings of blood chemistry Medications: Changed From levothyroxine 150 mcg PO QAM 90 tabs 1RF To levothyroxine 137 mcg PO QAM 90 tabs 1RF
== END 2024-08-23 09:09 | disposition home or self-care (01) ==
PROVIDERS: PCP Nurse Practitioner Family; Visit Provider Nurse Practitioner Family
DX: R79.89 Other specified abnormal findings of blood chemistry (principal)

== ENCOUNTER → 2024-08-23 08:07 | Outpatient (BNVA) | payer OTHER, SELFPAY | PROVIDERS: PCP Nurse Practitioner Family; Visit Provider Nurse Practitioner Family | DX: R94.6 Abnormal results of thyroid function studies (principal); Z79.899 Other long term (current) drug therapy | CPT/HCPCS: 96127 ==

== ENCOUNTER 2024-09-07 07:06 | Outpatient (REF) | payer OTHER, SELFPAY ==
[2024-09-07 11:27] LABS: Prostate Specific Antigen 0.87 ng/mL (<0.05-4.0)
== END 2024-09-07 07:07 | disposition home or self-care (01) ==
LOC: HO.HMGCLDS 07:06
PROVIDERS: PCP Nurse Practitioner Family; Visit Provider Urology
DX: R97.20 Elevated prostate specific antigen [PSA] (principal); Z12.5 Encounter for screening for malignant neoplasm of prostate
CPT/HCPCS: 36415; 84153

== ENCOUNTER 2024-09-14 08:12 | Outpatient (AMB) | payer OTHER, SELFPAY ==
--- NOTE | 2024-09-14 08:14 | MHC.OFFVIS ---
Intake Visit Reasons: 1y/PSA(psa?) Intake Note: Patient is Present for Follow Up 1 year/PSA Urology Medication: Finasteride, Sildenafil, Tamsulosin Antibiotic Allergies: None Blood Thinners: None PVR: 45mL Allergies No Known Allergies [No Known Allergies*] Allergy (Verified 09/14/24 08:14) HPI Comments Details: Scotty Garcia is a very pleasant male. They are a patient of Dr. Gloria. They are seen in the office today for the following urologic conditions. - lower urinary tract symptoms - elevated PSA - erectile dysfunction PSA well-controlled Remains well-controlled with tamsulosin and finasteride Continue yearly review Lower Urinary Tract Symptoms: Current visit is for further evaluation of, predominate obstructive symptoms. Current treatment includes tamsulosin and finasteride Prostate Symptom Score 05/13 , Moderate (9-19), Bother 3 11/11 , Mild (0-8), Bother 2. Symptoms include 05/13 , incomplete emptying, weak stream, nocturia (>2), intermittency, and are progressing 11/11 , nocturia (>2), incomplete emptying, and are improving. Prior Prostate Score moderate. PSA 11/11 6.5 - prior score as high as 9, has 2x biopsy in [place] - 03/17 3.4, 10/16 1.0, 05/18 2.9, 09/17 0.5, 09/18 0.9 Prostate volume 30-50gm. Testing at next visit will include bladder scan. Treatment plan continue - finasteride and tamsulosin Erectile dysfunction Respond to 100 mg p.o. sildenafil PFSH Medical History Sleep apnea treated with continuous positive airway pressure (CPAP) Osteoarthritis of left hip Sleep apnea Elevated cholesterol Nocturnal hypoxemia SIMONE (obstructive sleep apnea) Hypersomnolence Obesity (BMI 35.0-39.9 without comorbidity) Enlarged prostate History of hyperthyroidism Elevated PSA Graves disease Surgical History Hx of colonoscopy History of thyroidectomy Family History Father Colon cancer Mother S/P triple vessel bypass Maternal Grandmother History of heart attack Son No problems noted. Daughter No problems noted. Paternal Grandmother Diabetes mellitus Social History Housing: House Are you a primary intensive care anaesthetist to a significant other at home: No Do you presently have visiting nurse or other home services: No Alcohol intake: current Alcohol intake frequency: a few times a week Alcohol type: beer Patient Tobacco Use Status: Former Tobacco user Tobacco use type: Cigarette Cigarette Packs Per Day: 1 Cigarettes Per Day: 20.0 Years Smoked: 45 e-Cigarette/Vaping Use: Never Used Second Hand Smoke Exposure: No Substance Use Type: Marijuana Advance Directives Date on File: 10/14/20 service: No Current occupational status: employed Current occupation: rt handed/[employer] Current occupational exposures/hazards: No Cognitive needs: No Hearing needs: No Vision needs: No Review of Systems Const Denies chills and Denies fever(s) Card Reports no additional complaints and Denies syncope Resp Denies cough GI Denies abdominal pain and Denies heartburn Reports as per HPI and Denies change in libido Neuro Denies syncope Psych Denies change in libido Endo Denies change in libido Physical Exam Const General: cooperative, healthy appearing, comfortable and no acute distress Orientation/consciousness: patient oriented x3 HEENT Face and sinus: Yes normal facial exam Mouth: moist mucous membranes Neck Neck: Yes normal visual inspection, Yes full ROM and Yes trachea midline Chest Chest palpation & inspection: normal inspection of the chest Resp Effort & Inspection: normal respiratory effort, able to speak in complete sentences and no respiratory distress GI Inspection: Yes normal to inspection Back/Spine/Pelvis Cervical Spine: normal cervical lordosis Thoracic/Lumbar Spine: thoracic and lumbar spine normal to inspection Skin General skin exam: no rashes or lesions noted Neuro General: patient oriented x3, gait normal, tone normal and moves all extremities Extrem General: Yes normal to inspection and Yes capillary refill normal Office Procedures Post Void Residual Post Residual Void Post Void Residual (PVR): 45 [id number] Void Residual by ultrasound Assessment & Plan Assessment & Plan (1) Elevated PSA: Code(s): R97.20 - Elevated prostate specific antigen [PSA] Category: Medical (2) BPH w urinary obs/LUTS: Code(s): N40.1 - Benign prostatic hyperplasia with lower urinary tract symptoms; N13.8 - Other obstructive and reflux uropathy Category: Medical (3) Erectile dysfunction: Code(s): N52.9 - Male erectile dysfunction, unspecified Category: Medical Plan Twelve month follow-up Orders: Orders AMB Post Void Residual by ultrasound Today N13.8 - Other obstructive and reflux uropathy, N40.1 - Benign prostatic hyperplasia with lower urinary tract symptoms Medications: Refilled sildenafil administer 30 minutes to 4 hours before activity 100 mg PO DAILY 30 days PRN 30 tabs 1RF sexual activity N13.8 - Other obstructive and reflux uropathy, N40.1 - Benign prostatic hyperplasia with lower urinary tract symptoms tamsulosin 0.4 mg PO DAILY 90 days 90 caps 3RF N13.8 - Other obstructive and reflux uropathy, N40.1 - Benign prostatic hyperplasia with lower urinary tract symptoms Patient Instructions: This note is constructed using voice recognition software. While every effort has been made to ensure accuracy direct marketing intern errors may have been included. Imaging studies, laboratory and physical exam results were discussed and reviewed in detail. No major barriers to patient understanding were identified. An opportunity to ask questions regarding the treatment plan was provided. All questions were answered. The patient expressed understanding and agreement with the above treatment plan. The patient is aware they should contact our office by phone for worsening of their current condition or the appearance of new urologic symptoms. Compliance is encouraged with any medications and followup testing that is ordered. It is a privilege to participate in the urologic care of your patient. If you have any questions or concerns regarding treatment for the above conditions, or other urologic issues, please do not hesitate to contact me. The office telephone contact is [phone]. Sincerely, Dr Reid Capellan MD, [facility] Compassionate Specialist Care for the Genitourinary System Coding Level of Care Code Est Pt Level 4 (05746) Diagnoses Elevated PSA R97.20 BPH w urinary obs/LUTS N40.1; N13.8 Erectile dysfunction N52.9 CPT Codes Post Residual Void - PVR CPT Code: 67164-Gqpt Void Residual by ultrasound ([id number])
== END 2024-09-14 08:59 | disposition home or self-care (01) ==
LOC: HO.HUSH 08:12
PROVIDERS: PCP Nurse Practitioner Family; Visit Provider Urology
DX: R97.20 Elevated prostate specific antigen [PSA] (principal); N40.1 Benign prostatic hyperplasia with lower urinary tract symptoms; N13.8 Other obstructive and reflux uropathy; N52.9 Male erectile dysfunction, unspecified
CPT/HCPCS: 99214

== ENCOUNTER → 2024-09-14 08:12 | Outpatient (BNVA) | payer OTHER, SELFPAY | PROVIDERS: PCP Nurse Practitioner Family; Visit Provider Urology | DX: N40.1 Benign prostatic hyperplasia with lower urinary tract symptoms (principal); N52.9 Male erectile dysfunction, unspecified; R97.20 Elevated prostate specific antigen [PSA]; N13.8 Other obstructive and reflux uropathy | CPT/HCPCS: 51798 ==

== ENCOUNTER 2025-02-21 07:04 | Outpatient (REF) | payer OTHER, SELFPAY ==
[2025-02-21 10:25] LABS: MANUAL DIFF FLAG NO
[2025-02-21 10:31] LABS: Hematocrit 42.9 % (42.0-52.0); Hemoglobin 13.9 g/dl (14.0-18.0); Imm Gran Abs Auto 0.04 X10*3/uL (0.00-0.03); Imm Gran Pct Auto 0.5 % (0.0-0.4); Lymphocytes Absolute Auto 3.3 X10*3/uL (1.2-4.9); Mean Corpuscular HGB Conc 32.4 g/dl (31.0-36.0); Mean Corpuscular Hemoglobin 30.3 pg (27.0-33.0); Mean Corpuscular Volume 93.5 fL (80.0-98.0); NRBC Abs Auto 0.000 X10*3/uL (0.0-0.012); NRBC Pct Auto 0.0 /100WBC (0.0-0.2); Platelet Count 334 X10*3/uL (160-400); Red Blood Count 4.59 X10*6/uL (4.60-5.80); White Blood Count 8.3 X10*3/uL (4.8-10.8)
[2025-02-21 10:47] LABS: Alanine Aminotransferase 26 U/L (0-40); Albumin Level 4.2 g/dL (3.5-5.0); Alkaline Phosphatase 45 U/L (39-117); Anion Gap 8 (12-20); Aspartate Amino Transferase 25 U/L (5-37); Blood Urea Nitrogen 16 mg/dL (9-16); Calcium 8.5 mg/dL (8.4-10.2); Carbon Dioxide 28 mmol/L (22-29); Chloride 108 mmol/L (96-108); Cholesterol 128 mg/dL (<200); Estimated Glomerular Filt Rate > 60; HDL Cholesterol 43 mg/dL (>40); Potassium 4.1 mmol/L (3.3-5.1); Sodium 140 mmol/L (135-145); Total Protein 7.3 g/dL (6.5-8.0); Triglycerides 93 mg/dL (<150)
[2025-02-21 10:49] LABS: Appearance Urine Clear; Glucose Urine UA Negative (Negative); PH 6.5 (5.0-9.0); Specific Gravity - Urine 1.020 (1.005-1.025); UMIC TRIGGER UACC YES
[2025-02-21 10:59] LABS: UACC Culture Trigger YES
[2025-02-21 11:44] LABS: Free T4 (Free Thyroxine) 1.07 ng/dL (0.71-1.85)
== END 2025-02-21 07:05 | disposition home or self-care (01) ==
LOC: HO.HMGCLDS 07:04
PROVIDERS: PCP Nurse Practitioner Family; Visit Provider Nurse Practitioner Family
DX: R79.89 Other specified abnormal findings of blood chemistry (principal); Z13.29 Encounter for screening for other suspected endocrine disorder
CPT/HCPCS: 36415; 80053; 80061; 81001; 84439; 84443; 85025; 87086

== ENCOUNTER 2025-02-28 07:51 | Outpatient (AMB) | payer OTHER, SELFPAY ==
[2025-02-28 07:57] VITALS: BP 116/64; PULSE 69; RESP 16; TEMP 36.6; O2SAT 95; BMI 38.3
--- NOTE | 2025-02-28 07:57 | MHC.PC.OV ---
Vital Signs 02/28/25 07:57 Height 5 ft 10 in Weight 267 lb BMI 38.3 BP 116/64 Respiration 16 Pulse 69 Pulse Source Pulse Oximeter Temp 97.9 F Temp Source Oral Pulse Oximetry (%) 95 Oxygen Delivery Method Room Air Intake Visit Reasons: PE Exhaust And Muffler Fitter Required: No Accompanied by: Self / Same As Patient Allergies No Known Allergies (No Known Allergies*) Allergy (Verified 02/28/25 07:59) Medication List - Last Reconciled 02/28/25 by KAUR Murray- atorvastatin 20 mg PO DAILY finasteride 5 mg PO DAILY 90 days levothyroxine (Levo-T) 125 mcg PO DAILY 30 days losartan 25 mg PO DAILY 90 days sildenafil 100 mg PO DAILY PRN 30 days tamsulosin 0.4 mg PO DAILY 90 days walker Folding Front wheeled walker Tobacco use date assessed: 02/28/25 Fall risk assessment: No Falls in past year Last assessed Fall Risk: 02/28/25 Dental Screening Dental Screen Date: 02/28/25 Did you have a dental visit in the last 12 months?: Yes Did you have a dental problem in the last 6 months where you did not have access to dental care?: No Was dental information given to patient?: Patient has dentist HPI PE HPI Details History of Present Illness The patient is a 70-year-old male presenting with dyspnea on exertion and weight management. The patient reports experiencing dyspnea on exertion, which he associates with his smoking habit and recent weight gain. He denies any chest pain or other respiratory symptoms. The patient acknowledges weight gain and expresses a desire to lose weight. He has been advised to control portion sizes and reduce alcohol intake to aid in weight management. The patient has a history of osteoarthritis, which affects his knees and limits his exercise options. He plans to incorporate cycling into his routine as a form of exercise that is less stressful on his joints. The patient is a smoker and has been advised to reduce tobacco use. He also sees a urologist regularly and his vital signs are stable. declinces LDCT Preventative care measures include a colon cancer screening scheduled for next year. adjusting his levo (decreasing dose). Health Maintenance - Weight management: Advised to control portion sizes and reduce alcohol intake - Exercise: Plan to incorporate cycling as a form of exercise - Smoking cessation: Advised to reduce tobacco use - Preventative care: Colon cancer screening scheduled for next year - labs already performed Social History - Tobacco use: Smokes regularly - Alcohol use: Advised to reduce intake - Exercise: Plans to incorporate cycling due to knee osteoarthritis Review of Systems - Respiratory: Reports dyspnea on exertion. Denies chest pain. - Gastrointestinal: Denies abdominal pain, blood in stool, constipation, or diarrhea. - Psychiatric: Denies suicidal ideation or homicidal thoughts. -denies any fevers, chills Physical Exam General: Cooperative, healthy appearing, comfortable, no acute distress and well developed, obese Orientation: Patient oriented x3 Limitations: No limitations Head: Normal to inspection Ears: Hearing grossly normal bilaterally Nose: Normal external nose present Face and sinus: Normal facial exam Eyes: Appearance normal, both eyes and all related structures Neck: Normal visual inspection and Yes full ROM Respiratory: coarse wheezes throughout Cardiovascular: Regular rate and rhythm. Normal S1 and S2 GI: Normal to inspection. Soft to palpation and nontender : Testicles without masses/lesions and no hernias appreciated Skin: No rashes or lesions noted Neuro: Patient oriented x3 Extremities: Normal to inspection, but knees do bother him due to arthritis Plan 1. Dyspnea On Exertion The patient is advised to reduce tobacco use to alleviate dyspnea on exertion. 2. Weight Gain The patient is encouraged to manage weight through portion control and reduced alcohol intake. 3. Osteoarthritis The patient plans to incorporate cycling as a low-impact exercise to manage osteoarthritis symptoms. 4. Preventative Care A colon cancer screening is scheduled for next year as part of preventative care. 5. hypothyroid levo dose decreased to 125mcg, repeat TSH in 2 months Discussion Notes During the visit, we discussed the importance of reducing tobacco and alcohol use to improve overall health and manage dyspnea and weight gain. We also talked about incorporating cycling as a suitable exercise for managing osteoarthritis. Preventative care measures, including a scheduled colon cancer screening for next year, were reviewed. Patient Instructions - Reduce tobacco use to help with breathing issues. - Control portion sizes and reduce alcohol intake to manage weight. - Start cycling as a form of exercise to alleviate knee pain from osteoarthritis. - Schedule and attend a colon cancer screening next year. [facility] Medical History Sleep apnea treated with continuous positive airway pressure (CPAP) Osteoarthritis of left hip Sleep apnea Elevated cholesterol Nocturnal hypoxemia SIMONE (obstructive sleep apnea) Hypersomnolence Obesity (BMI 35.0-39.9 without comorbidity) Enlarged prostate History of hyperthyroidism Elevated PSA Graves disease Surgical History Hx of colonoscopy History of thyroidectomy Family History Father Colon cancer Mother S/P triple vessel bypass Maternal Grandmother History of heart attack Son No problems noted. Daughter No problems noted. Paternal Grandmother Diabetes mellitus Social History Housing: House Are you a primary lead caregiver to a significant other at home: No Do you presently have visiting nurse or other home services: No Alcohol intake: current Alcohol intake frequency: a few times a week Alcohol type: beer Patient Tobacco Use Status: Former Tobacco user Tobacco use type: Cigarette Cigarette Packs Per Day: 1 Cigarettes Per Day: 20.0 Years Smoked: 45 e-Cigarette/Vaping Use: Never Used Second Hand Smoke Exposure: No Substance Use Type: Marijuana Advance Directives Date on File: 10/14/20 service: No Current occupational status: employed Current occupation: [employer] Current occupational exposures/hazards: No Cognitive needs: No Hearing needs: No Vision needs: No Questionnaire PHQ-9 Over the last 2 weeks, how often have you been bothered by any of the following problems? 2. Feeling down, depressed, or hopeless: not at all 3. Trouble falling or staying asleep, or sleeping too much: not at all 4. Feeling tired or having little energy: not at all 5. Poor appetite or overeating: not at all 6. Feeling bad about yourself - or that you are a failure or have let yourself or your family down: not at all 7. Trouble concentrating on things, such as reading the newspaper or watching television: not at all 8. Moving or speaking so slowly that other people could have noticed. Or the opposite - being so fidgety or restless that you have been moving around a lot more than usual: not at all 9. Thoughts that you would be better off or of hurting yourself in some way: not at all Depression Screening Interpretation: Negative Depression Screening Done: Yes 92250 - PHQ-9 Billing: Yes Source: Developed by Drs. Dandre Sequeira, Lyle Schmitz and colleagues, with an educational reno from [employer]. Thrive Questionnaire Date Thrive assessed: 08/23/24 I am a: Patient What is your living situation today?: I have a steady place to live Within the past 12 months, did the food you bought not last and you didn't have the money to get more?: Never true Within the past 12 months, did you worry whether your food would run out before you got money to buy more?: Never true Do you have trouble paying for medicines?: No Do you have trouble getting transportation to medical appointments?: No Do you have trouble paying your heating and electricity bill?: No Do you have trouble taking care of your child, family member or friend?: No Do you have trouble with day-to-day activities such as bathing, preparing meals, shopping, managing finances, etc.?: No Are you currently unemployed and looking for a job?: No Are you interested in more education?: No Please select the resources that you would like help with: None Currently or been in a relationship where the following occur: No concerns reported THRIVE Score: 0 AUDIT C Alcohol Use Questionnaire (AUDIT-C) 1. How often do you have a drink containing alcohol?: Monthly or less Total Score: 1 Score Reviewed/Action Taken: Yes RAFITA-7 AMB Questionnaire RAFITA-7 Date RAFITA - 7 assessed: 02/28/25 Feeling nervous, anxious, or on edge: 0 = Not at all Not being able to stop or control worryin = Not at all Worrying too much about different things: 0 = Not at all Trouble relaxin = Not at all Being so restless that it is hard to sit still: 0 = Not at all Becoming easily annoyed or irritable: 0 = Not at all Feeling afraid as if something awful might happen: 0 = Not at all Total RAFITA-7 score (0-4 normal; 5-9 mild; 10-14 moderate; 15-21 severe): 0 Source: Developed by Drs. Dandre Sequeira, Lyle Schmitz and colleagues, with an educational reno from [employer]. RAFITA-7 Assessment Billing RAFITA-7 Assessment Tool: RAFITA-7 Assessment 86473 Physical exam (Primary Care) Vital Signs: Last Vital Signs Temp 97.9 F 02/28/25 07:57 Pulse 69 02/28/25 07:57 Resp 16 02/28/25 07:57 BP 116/64 02/28/25 07:57 Pulse Ox 95 02/28/25 07:57 Oxygen Delivery Method Room Air 02/28/25 07:57 BMI result Body Mass Index 38.3 Tobacco/Smoking Status: Tobacco use Status Tobacco use date assessed 02/28/25 02/28/25 08:02 Patient Tobacco Use Status Former Tobacco user 02/28/25 08:02 Tobacco use type Cigarette 02/28/25 08:02 e-Cigarette/Vaping Use Never Used 02/28/25 08:02 Depression Screening Interpretation: Negative Thrive Assessment: Date of Thrive Assessment Date Thrive assessed 08/23/24 02/28/25 08:02 Currently or been in a relationship where the following occur: No concerns reported Coding Level of Care Code Est Pt Prev Care >65y(56546) Diagnoses Physical exam Z00.00 Low TSH level R79.89 Additional Codes RAFITA-7 Assessment Billing - RAFITA-7 Assessment Tool: RAFITA-7 Assessment 82624 ([id number]) PHQ-9 - 45337 - PHQ-9 Billing: Yes ([id number]) Assessment & Plan Assessment & Plan (1) Physical exam: Code(s): Z00.00 - Encounter for general adult medical examination without abnormal findings Category: Medical (2) Low TSH level: Code(s): R79.89 - Other specified abnormal findings of blood chemistry Category: Medical Plan . Orders: Orders Comprehensive [place]. Panel Fast 2 Months R7.89 - Other specified abnormal findings of blood chemistry, Z00.00 - Encounter for general adult medical examination without abnormal findings TSH reflex Free T4 2 Months R7.89 - Other specified abnormal findings of blood chemistry, Z00.00 - Encounter for general adult medical examination without abnormal findings Medications: New levothyroxine (Levo-T) 125 mcg PO DAILY 30 tabs 3RF 30 days Discontinued levothyroxine Discontinued Reason: Doctor's Order 137 mcg PO QAM 90 tabs 1RF
== END 2025-02-28 10:00 | disposition home or self-care (01) ==
LOC: HO.HMCC 07:52
PROVIDERS: PCP Nurse Practitioner Family; Visit Provider Nurse Practitioner Family
DX: Z00.00 Encounter for general adult medical examination without abnormal findings (principal); R79.89 Other specified abnormal findings of blood chemistry

== ENCOUNTER → 2025-02-28 07:51 | Outpatient (BNVA) | payer OTHER, SELFPAY | PROVIDERS: PCP Nurse Practitioner Family; Visit Provider Nurse Practitioner Family | DX: Z00.00 Encounter for general adult medical examination without abnormal findings (principal); R06.00 Dyspnea, unspecified; M17.0 Bilateral primary osteoarthritis of knee; F17.210 Nicotine dependence, cigarettes, uncomplicated; E03.9 Hypothyroidism, unspecified; R79.89 Other specified abnormal findings of blood chemistry | CPT/HCPCS: 96127 ==

== ENCOUNTER 2025-06-25 07:09 | Outpatient (REF) | payer OTHER, SELFPAY ==
[2025-06-25 11:25] LABS: Alanine Aminotransferase 24 U/L (0-40); Albumin Level 4.2 g/dL (3.5-5.0); Alkaline Phosphatase 57 U/L (39-117); Anion Gap 10 (12-20); Aspartate Amino Transferase 19 U/L (5-37); Blood Urea Nitrogen 18 mg/dL (9-16); Calcium 8.8 mg/dL (8.4-10.2); Carbon Dioxide 27 mmol/L (22-29); Chloride 108 mmol/L (96-108); Estimated Glomerular Filt Rate > 60; Potassium 4.7 mmol/L (3.3-5.1); Sodium 140 mmol/L (135-145); Total Protein 7.5 g/dL (6.5-8.0)
== END 2025-06-25 07:10 | disposition home or self-care (01) ==
LOC: HO.HMGCLDS 07:09
PROVIDERS: PCP Nurse Practitioner Family; Visit Provider Nurse Practitioner Family
DX: Z00.00 Encounter for general adult medical examination without abnormal findings (principal); R79.89 Other specified abnormal findings of blood chemistry; Z13.29 Encounter for screening for other suspected endocrine disorder
CPT/HCPCS: 36415; 80053; 84443